=== PATIENT | male | born 1935 | race Asian ===

== ENCOUNTER → 2016-05-10 | Outpatient (CLI) | payer MEDICARE ==
[~2016-05-10] MED LIST: ALDACTONE25 MG PO; CRESTOR10 MG PO; LOPRESSOR50 MG PO; SYMBICORT 16010.2 GM INH
[2016-05-10 09:52] LABS: CREATININE 1.4 mg/dL (0.6-1.3)
== END | disposition disaster alternative care site (69) ==
LOC: GLAB 08:00 → GRAD 09:02 → GLAB 09:15 → GRAD 10:00
PROVIDERS: Surgery Vascular Surgery
DX: I71.6 Thoracoabdominal aortic aneurysm, without rupture (principal); R91.1 Solitary pulmonary nodule
CPT/HCPCS: J7040

== ENCOUNTER 2016-08-24 15:00 | Inpatient (IN) | payer MEDICARE ==
[~2016-08-24] VITALS: Ht 162.6 cm; Wt 55.1 kg
--- NOTE | ~2016-08-24 | HP ---
PATIENT'S NAME: ULIS ROBLES [facility] AGE: 81 Y [address] ROOM: [address] [address] LOCATION: [facility] ADMIT DATE: 08/24/2016 History & Physical DISCHARGE DATE: FAMILY PHYSICIAN: TOM RUBY MD ATTENDING PHYSICIAN: Chaitanya CALI DATE OF SERVICE: CHIEF COMPLAINT: Head bleed. HISTORY OF PRESENT ILLNESS: The patient is an 81-year-old gentleman with a history of hypertension, hyperlipidemia, and COPD, who presents here with a fall. According to daughter, the patient went to take a bath today this afternoon and the sound of fall was heard. The went to see him and he was found on the floor. The patient was unconscious and unresponsive. EMS was called. Initially by EMS evaluation, the patient's GCS score was 4 and was intubated. The patient received etomidate for intubation. The patient was admitted to our hospital and was found to be unresponsive with a GCS score of 3. CT head was done and it showed left intrathalamic bleed extending into the ventricles, right subdural hematoma, and also bleed seen in the lee. Dr. Chen was consulted from Neurosurgery. Discussion was had with the family, and it was decided not to have surgery due to the extensive intraparenchymal bleed. The family member wants the patient to continue to be medically treated until most family members can come and see him before he passes away if he dies. PAST MEDICAL HISTORY: Hypertension, hyperlipidemia, and COPD. SURGICAL HISTORY: AAA repair. FAMILY HISTORY: Unknown. SOCIAL HISTORY: He has a history of tobacco use. Currently, he does not smoke. Family denies him drinking. He is a retired factory assembler and lived in [place] for close to 25 years. MEDICATIONS: Currently have been reconciled. REVIEW OF SYSTEMS: PATIENT'S NAME: LUIS ROBLES [facility] AGE: 81 Y [address] ROOM: [address] [address] LOCATION: [facility] ADMIT DATE: 08/24/2016 History & Physical DISCHARGE DATE: FAMILY PHYSICIAN: TOM RUBY MD ATTENDING PHYSICIAN: Chaitanya CALI Unable to assess due to the patient's poor mentation. PHYSICAL EXAMINATION: VITAL SIGNS: Temperature 96.8, blood pressure 198/106, heart rate of 64, respiratory rate 16, oxygen saturation of 100 on 100 FiO2. GENERAL APPEARANCE: The patient is intubated and unresponsive. HEENT: Eyes: Pupils are midline and constricted. Pupils are not reactive to light. Mouth: ET tube placement present. CHEST: Clear to auscultation bilaterally. HEART: Regular rate and rhythm. No murmurs, rubs, or gallops. ABDOMEN: Soft, nondistended. Bowel sounds present. SKIN: Warm to touch. MUSCULOSKELETAL: No obvious joint effusion. COLLISION CENTER MANAGER: The patient's GCS score is 3. Pupils are not reactive to light. LABORATORY DATA: Sodium 140, potassium 4.1, bicarb 26, creatinine of 2.1, and BUN of 46. White blood cell count of 12.6, hemoglobin 12.2, and platelet 155. Troponin x1 negative. AB.38, CO2 of 41, bicarb of 24.3. ASSESSMENT AND PLAN: 1. Intraparenchymal bleed. The patient with a history of hypertension, who presents here with enlarged left acute thalamic hemorrhage with intraventricular extension as well as small bleed involving the right occipital lobe and lee with mild dilation of the ventricles. Developing hydrocephalus cannot be excluded. Also, CT shows mild periventricular and small vessel ischemic changes and small remote-appearing fountain- like nerve infarcts. The patient was seen by Dr. Chen. Currently, no surgical intervention recommended by Neurosurgery. We will admit the patient to ICU to keep his blood pressure below 160. We will start the patient on nicardipine drip to maintain systolic blood pressure below 160. Family at this moment wants the patient to be full code and wants family members to be present before they decide further care. To repeat CT head in the morning. Currently, the patient's GCS score is 3. 2. Hypertensive emergency. Systolic blood pressure in the 198. We will start the patient on nicardipine drip to quickly drop blood pressure to systolic blood pressure below 160. 3. Acute encephalopathy. Please see problem #1. 4. Acute hypoxic respiratory failure, secondary to problem #1. To keep the patient on mechanical ventilation. We will continue the patient on assist-control volume control, tidal volume 400, respiratory rate 16, PATIENT'S NAME: LUIS ROBLES [facility] AGE: 81 Y [address] ROOM: [id number] [place], [place] [address] LOCATION: GICU ADMIT DATE: 08/24/2016 History & Physical DISCHARGE DATE: FAMILY PHYSICIAN: TOM RUBY MD ATTENDING PHYSICIAN: Chaitanya CALI PEEP of 5, and we will drop his FiO2 to 50. We will check ABG in q.a.m. Greater than 30 minutes critical care time was spent on the patient. Code status was discussed with Hermila, the patient's daughter. Code status is currently full code. MD DALLAS CORLEY/savannah /[id number] D: [id number] T: [id number] HISTORY & PHYSICAL
--- NOTE | ~2016-08-24 | HP ---
PATIENT'S NAME: FACUNDO ROBLES [facility] AGE: 81 Y [address] ROOM: [address] [address] LOCATION: [facility] ADMIT DATE: 08/24/2016 History & Physical DISCHARGE DATE: FAMILY PHYSICIAN: TOM RUBY MD ATTENDING PHYSICIAN: Chaitanya CALI DATE OF SERVICE: Facundo Robles is an 81-year-old Syrian patient I see as an outpatient. He was admitted to the hospital this time through the emergency room after being found unresponsive at home on my review of the chart. He has a large intracranial bleed. His treatment and management will be per the specialist from [facility] hospitalist service and the physicians that man the intensive care unit. I will follow along socially, but not be involved in the day-to-day management or decision tree while this patient is in the hospital. TOM RUBY MD ECONOMICS INSTRUCTOR/modl /[id number] D: T: HISTORY & PHYSICAL
--- NOTE | ~2016-08-24 | DS ---
PATIENT'S NAME: LUIS ROBLES [facility] AGE: 81 Y [address] ROOM: [place] [address] [place] [facility] [place] DATE: 08/24/2016 Discharge Summary DISCHARGE DATE: 09/17/2016 FAMILY PHYSICIAN: Bari Alicia MD ATTENDING PHYSICIAN: Chaitanya Nolan PRINCIPAL DIAGNOSES: 1. . 2. Intracranial bleed. 3. Unresponsiveness. 4. Fall. 5. Klebsiella pneumonia. HOSPITAL COURSE: This was an 81-year-old male with history of hypertension, hyperlipidemia, and COPD, who presented initially with a fall and unresponsiveness. The patient, on initial CAT scan, was noted to have an extensive intraparenchymal hemorrhage relating to trauma he sustained from his fall and head injury. Prompt Neurosurgery consultation was obtained. Discussion with the family at that time was made that to not pursue an extensive surgery. However, the patient subsequently had a ventriculostomy drain placed, and was admitted to the ICU and closely followed up for several days. The patient stayed intubated and unresponsive throughout his hospitalization, but however, unfortunately, did not have any significant improvement in his neurological functioning over several days despite an extensive Multidisciplinary team based approach in managing his multiple issues during his hospitalization. Due to patient's ongoing unresponsiveness and his long-term need to be ventilated, after discussing with the family, and at that time, the patient's family still wanted to aggressively pursue treatment, it was decided for patient to be trached and pegged and had a few more days' stay in the hospital. In the subsequent days, continued discussion with the family ensued, and it was decided later on that it was appropriate to pursue comfort care measures. The patient, after all family members were present, was terminally extubated, and passed a few hours following terminal extubation in the presence of family members. TIME OF : 17:35 on 09/17/2016. Greater than 30 minutes were spent in discharge planning, facilitating, and providing end-of-life care measures per the patient and patient's family. KISHA BRITO MD PATIENT'S NAME: LUIS ROBLES [facility] AGE: 81 Y [address] ROOM: [address] [address] [place] [facility] [place] DATE: 08/24/2016 Discharge Summary DISCHARGE DATE: 09/17/2016 FAMILY PHYSICIAN: Bari Alicia MD ATTENDING PHYSICIAN: Chaitanya Nolan /[id number] d: 09/19/16 0419 t: 10/10/16 1521, DISCHARGE SUMMARY
--- NOTE | ~2016-08-24 | CON ---
PATIENT'S NAME: LUIS ROBLES [facility] AGE: 81 Y [address] ROOM: [place] [id number] LOCATION: GICU ADMIT DATE: 08/24/2016 Consultation DISCHARGE DATE: FAMILY PHYSICIAN: TOM RUBY MD ATTENDING PHYSICIAN: Chaitanya CALI DATE OF CONSULTATION: 08/25/2016 CONSULTING PHYSICIAN: Felipe Chen MD Consultation for neurointensive management. HISTORY OF PRESENT ILLNESS: This is an 81-year-old gentleman who I am postoperative day 0 after placement of an external ventricular drained and ICP monitor. Brief history obtained from the chart and family, is an 81-year-old man with history of hypertension, hyperlipidemia, and COPD who currently had a fall, found unresponsive on 08/24. EMS was called, found to have a GCS score of 4, was intubated, and taken to the emergency room in [facility] with a CT scan, which showed a large thalamic hemorrhage, intraventricular hemorrhage, some hydrocephalus, lee, and an occipital lobe hemorrhage as well. Initial discussions with Neurosurgery in the ER and family was going to just provide some comfort care and medical management and all family could arrive, and apparently sometime overnight he was found to be somewhat responsive and then became unresponsive. A CT was found showing a worsened hemorrhage and hydrocephalus. After that and some further discussion with the family and Neurosurgery decided to place an external ventricular drain to see if his decline was due to hydrocephalus. PAST MEDICAL HISTORY: Hypertension, hyperlipidemia, and COPD. SURGICAL HISTORY: AAA repair. FAMILY HISTORY: Unknown. SOCIAL HISTORY: History of tobacco use. He has quit smoking. There is no alcohol use. MEDICATIONS: Spironolactone, metoprolol, Crestor, and Symbicort. PATIENT'S NAME: ROBLESLUIS GOMEZ [facility] AGE: 81 Y [address] ROOM: [place] [address] LOCATION: GICU ADMIT DATE: 08/24/2016 Consultation DISCHARGE DATE: FAMILY PHYSICIAN: TOM RUBY MD ATTENDING PHYSICIAN: Chaitanya CALI ALLERGIES: NO KNOWN ALLERGIES. REVIEW OF SYSTEMS: Unobtainable. PHYSICAL EXAMINATION: VITAL SIGNS: His weight is about 51 kg, temperature is 97.9, heart rate is 120, respiratory rate 16, saturations 99%, 135/68 blood pressure, ICP is 8. GENERAL: The patient is intubated and sedated, sitting about 30 degrees in bed. HEAD: He has an external ventricular drain, endotracheal tube, and right IJ. All seemed to be clean, dry, and intact and functioning. CHEST: Clear to auscultation bilaterally. HEART: Tachycardic. ABDOMEN: Soft, nondistended. Positive bowel sounds. EXTREMITIES: No cyanosis, clubbing, or edema. TABLE SAW OPERATOR: The patient does not open eyes. Does not follow commands. He is not responding to painful stimuli. Pupils are unequal. Right eye about 5 and fixed and the other eye is about 3-4 and nonreactive. ASSESSMENT AND PLAN: 1. Neuro. The patient had an intercerebral hemorrhage most likely secondary hypertension. This affects the thalamic area with interventricular extension and the occipital lobe. He also had hydrocephalus, status post placement of external ventricular drain. The initial ICP in the OR after placement was not that elevated around 13 was reported. This possibly suggest that this cognitive decline is not due to relatively easy improvement with relief of the hydrocephalus. It is more likely due to expansion of the hemorrhage and his underlying injury. We will keep him sedated and comfortable overnight with hopes to wean the sedation as tolerated. He is still on a Cardene drip to maintain his blood pressure. Keep his CPPs between 60 and 90, ICPs less than 20, and try to maintain his systolic blood pressure less than 150; however, we will go higher if needed to maintain a CPP. a. Acute respiratory failure. Hypercarbic, hypoxic secondary to his hemorrhagic stroke. Maintain vent support. b. Hypertension, likely underlying cause for hemorrhage. On a Cardene drip at this time to maintain systolic blood pressures anywhere from 150. 2. Renal function. He has elevated creatinine, likely acute kidney injury. Maintain adequate hydration. Good urine output. Electrolytes were currently okay. 3. GI: No current issues. We will start tube feed in the next day or so. 4. Infectious disease. He is afebrile. PATIENT'S NAME: LUIS ROBLES [facility] AGE: 81 Y [address] ROOM: [place] [address] LOCATION: [facility] ADMIT DATE: 08/24/2016 Consultation DISCHARGE DATE: FAMILY PHYSICIAN: TOM RUYB MD ATTENDING PHYSICIAN: Chaitanya CALI 5. Heme. He has mild anemia that appears to be stable at this time. No intervention is needed. I discussed the care with the family. The point person is going to be a anette. He has left his number. Stated that he still has a very significant injury with a poor prognosis and high mortality. Family seemed to be aware. They said that he is a strong man and prideful and would not want to be in a incapacitated or disabled state. Given his recent responsive, it is prudent to proceed with current management for the next few days to see how his recovery may go. I spent approximately 48 minutes of critical care time reviewing the chart, labs, x-rays, and discussion with the family. KELLI KLEIN MD JJP/savannah /[id number] d: 08/26/16 1631 t: 09/07/16 1700, CONSULTATION REPORT
--- NOTE | ~2016-08-24 | OR ---
PATIENT'S NAME: LUIS ROBLES [facility] AGE: 81 Y [address] ROOM: [place] [address] LOCATION: GICU ADMIT DATE: 08/24/2016 OR/Procedure Report DISCHARGE DATE: FAMILY PHYSICIAN: TOM RUBY MD ATTENDING PHYSICIAN: Chaitanya CALI SURGEON: Marvin Cordova MD UPSTREAM BIOMANUFACTURING TECHNICIAN: DATE OF PROCEDURE: 08/25/2016 PREOPERATIVE DIAGNOSIS: Left basal ganglia hemorrhage with extension into the third and lateral ventricles with accompanying hydrocephalus. POSTOPERATIVE DIAGNOSIS: Left basal ganglia hemorrhage with extension into the third and lateral ventricles with accompanying hydrocephalus. OPERATION PROPOSED AND PERFORMED: Left frontal ventriculostomy and ICP monitor insertion. PREAMBLE: This is a gentleman who had a hypertensive bleed in the left basal ganglia. He was admitted yesterday and was apparently obeying commands. However, this morning, he was not doing bad, we could still get him to withdraw to painful stimuli in all extremities though it required a lot more stimulation in the upper extremities than was needed yesterday. A CT scan of the brain that was done, showed increase in the ventricular size and increase in the blood volume in the basal ganglia and increased shift of the third ventricle. It was therefore elected to go ahead and put a ventricular drain in and also monitor the ICP at the same time. DESCRIPTION OF PROCEDURE: Under general anesthesia, the patient was positioned supine. The left frontal region was shaved, prepped, and draped in the usual fashion. Next, a linear incision was carried out along the midpupillary line just anterior to the coronal suture. The pericranium was incised, twist drill hole was carried out at this site, dura was cauterized and incised. Next, a Filecubed ICP monitor with the ventricular catheter was passed through a separate stab wound through the incision and the ventricular catheter, which had the ICP sensor in it, was passed through the dural opening into the frontal horn. CSF came out under high pressure. Next, the ventricular catheter was then connected to a drainage bag. He tolerated the procedure well. The wound was closed using a single 3-0 Nurolon. MARVIN CORDOVA MD PATIENT'S NAME: LUIS ROBLES [facility] AGE: 81 Y [address] ROOM: [place] [address] LOCATION: [facility] ADMIT DATE: 08/24/2016 OR/Procedure Report DISCHARGE DATE: FAMILY PHYSICIAN: TOM RUBY MD ATTENDING PHYSICIAN: Chaitanya CALI /[id number] d: 08/26/16 0033 t: 08/31/16 1517, OPERATIVE SUMMARY
--- NOTE | ~2016-08-24 | HP ---
PATIENT'S NAME: LUIS ROBLES [facility] AGE: 81 Y [address] ROOM: [place] [address] LOCATION: [facility] ADMIT DATE: 08/24/2016 History & Physical DISCHARGE DATE: FAMILY PHYSICIAN: TOM RUBY MD ATTENDING PHYSICIAN: Chaitanya CALI DATE OF SERVICE: 08/31/2016 SURGICAL CONSULTATION CHIEF COMPLAINT: Altered mental status from intracranial bleed. HISTORY OF PRESENT ILLNESS: The patient is an 81-year-old gentleman who was initially admitted for hypertensive bleed. He has been on the neurointensive care team in the ICU being treated over the past week. He has been maintained on the ventilator and getting fed through an orogastric tube. He has had significantly altered mental status, and it is felt like he is in need of long-term airway access and enteral management. His ventilatory support has been minimal. PAST MEDICAL HISTORY: Positive for hypertension, hyperlipidemia, and COPD. PAST SURGICAL HISTORY: Include an open abdominal aortic aneurysm repair. SOCIAL HISTORY: According to the chart, the patient is a former smoker. No history of alcohol abuse. MEDICATIONS: On admission included: 1. Spironolactone. 2. Metoprolol. 3. Crestor. 4. Symbicort. His current medications have been reviewed on the computer. ALLERGIES: NO KNOWN ALLERGIES. PHYSICAL EXAMINATION: GENERAL: The patient is an elderly well-nourished gentleman. He is unresponsive. He is currently on the ventilator. PATIENT'S NAME: LUIS ROBLES [facility] AGE: 81 Y [address] ROOM: [place] [address] LOCATION: [facility] ADMIT DATE: 08/24/2016 History & Physical DISCHARGE DATE: FAMILY PHYSICIAN: TOM RUYB MD ATTENDING PHYSICIAN: Chaitanya CALI VITAL SIGNS: Temperature 98.0, blood pressure 159/75, pulse 109, respirations 24, sats are 97%. HEENT: He has a ventriculostomy tube in place. He has a right-sided neck central line placement. Orogastric, nasal, and endotracheal tube are in place. NECK: Trachea is easily palpated. There are no masses overlying it. Breathing is nonlabored. LUNGS: Clear to auscultation bilaterally. HEART: Regular rate and rhythm. ABDOMEN: Somewhat firm. It is mildly distended. He has good bowel sounds. He has a well-healed midline scar without obvious hernia. EXTREMITIES: No peripheral edema. No deformities. ASSESSMENT: An 81-year-old gentleman with altered mental status from intracranial hemorrhage. PLAN: We will plan on proceeding with a tracheostomy and EGD with possible PEG placement. I will discuss the risks and benefits further with the family. Unfortunately, the endoscopy schedule is completely full tomorrow, so we will probably have to wait until the first of next week to get this taken care of. MD FRANKLIN POWERS/savannah /[id number] D: [id number] T: [id number] HISTORY & PHYSICAL
--- NOTE | ~2016-08-24 | ENPV ---
Vascular Lower Extremities DVT Study Procedure Demographics Patient Name LUIS ROBLES Date of Study 09/04/2016 Patient Number [id number] Gender Male Date of 1935 Age 81 Visit Number [id number] Height Accession Number [id number] Weight Room Number G6201 BSA BMI Referring Goyo Bran MD Physician Goyo Putnam Physician Physician Ordering Goyo Putnam Director Internal Audit Physician [employer] Supervisor Gurpreet Ramírez BS, RT Conclusions Summary No evidence of deep vein thrombosis or superficial thrombophlebitis in the lower extremities bilaterally . Procedure Type of Study: Veins:Lower Extremities DVT Study, Venous Duplex Lower Extremity Bilateral. Indications for Study:Extended bedrest. Additional Indications:Brain bleed. Patient Status:Routine. Study Location:Inpatient Portable. Technical Quality:Adequate visualization. Velocities are measured in cm/s ; Diameters are measured in cm Right Lower Extremities DVT Study Measurements Right 2D and Doppler Measurements + + + + +------+------+ + !Location !Visualized!Compressibility!Thrombosis!Signal!Reflux!Reflux ! ! ! ! ! ! ! !(sec) ! + + + + +------+------+ + !GSV Thigh !Yes !Yes !None !Phasic!No ! ! + + + + +------+------+ + !Common !Yes !Yes !None !Phasic!No ! ! !Femoral ! ! ! ! ! ! ! + + + + +------+------+ + !Prox !Yes !Yes !None !Phasic!No ! ! !Femoral ! ! ! ! ! ! ! + + + + +------+------+ + !Mid Femoral!Yes !Yes !None !Phasic!No ! ! + + + + +------+------+ + !Dist !Yes !Yes !None !Phasic!No ! ! !Femoral ! ! ! ! ! ! ! + + + + +------+------+ + !Popliteal !Yes !Yes !None !Phasic!No ! ! + + + + +------+------+ + !Gastroc !Yes !Yes !None !Phasic!No ! ! + + + + +------+------+ + !PTV !Yes !Yes !None !Phasic!No ! ! + + + + +------+------+ + !Peroneal !Yes !Yes !None !Phasic!No ! ! + + + + +------+------+ + Left Lower Extremities DVT Study Measurements Left 2D and Doppler Measurements + + + + +------+------+ + !Location !Visualized!Compressibility!Thrombosis!Signal!Reflux!Reflux ! ! ! ! ! ! ! !(sec) ! + + + + +------+------+ + !GSV Thigh !Yes !Yes !None !Phasic!No ! ! + + + + +------+------+ + !Common !Yes !Yes !None !Phasic!No ! ! !Femoral ! ! ! ! ! ! ! + + + + +------+------+ + !Prox !Yes !Yes !None !Phasic!No ! ! !Femoral ! ! ! ! ! ! ! + + + + +------+------+ + !Mid Femoral!Yes !Yes !None !Phasic!No ! ! + + + + +------+------+ + !Dist !Yes !Yes !None !Phasic!No ! ! !Femoral ! ! ! ! ! ! ! + + + + +------+------+ + !Popliteal !Yes !Yes !None !Phasic!No ! ! + + + + +------+------+ + !Gastroc !Yes !Yes !None !Phasic!No ! ! + + + + +------+------+ + !PTV !Yes !Yes !None !Phasic!No ! ! + + + + +------+------+ + !Peroneal !Yes !Yes !None !Phasic!No ! ! + + + + +------+------+ + Signature dtt: CRYSTAL TRIANA dtd: 09/04/16 [facility] Physician Shaggy Salcedo
--- NOTE | ~2016-08-24 | CON ---
PATIENT'S NAME: LUIS ROBLES [facility] AGE: 81 Y [address] ROOM: [place] [address] LOCATION: GICU ADMIT DATE: 08/24/2016 Consultation DISCHARGE DATE: FAMILY PHYSICIAN: Bari Alicia MD ATTENDING PHYSICIAN: Chaitanya Nolan DATE OF CONSULTATION: 09/11/2016 REFERRING PHYSICIAN: Panfilo Fabian MD LOCATION: ICU, room [facility]. CHIEF COMPLAINT: Palliative care referral for goals of care conversation. HISTORY OF PRESENT ILLNESS: The patient is an 81-year-old, Romansh male with a past medical history of hypertension, hyperlipidemia, and COPD. Apparently, on the day of presentation, the patient had woken up from a nap and had gone to take a shower; when he did not return, his went looking for him and found him unresponsive in the bath tub. EMS was called and the patient was intubated. A head CT was done, which showed a left intrathalamic bleed extending into the ventricles as well as a right subdural hematoma and blood was also seen in the lee. Neurosurgery was consulted initially due to the extensive bleed. It was decided to not undergo surgery but the patient did rally, followed some commands for the family, thus on August 25 he underwent a left frontal ventriculostomy and ICP monitor placement. Postoperatively, the patient has not followed commands. His pupils are fixed and he exhibits posturing of upper extremities with stimuli. He did undergo a tracheostomy and PEG tube placement on September 05 and really has not made much in the way of improvement neurologically. He continues to have his trach in place and is at the current time requiring vent support. He did undergo a head CT in followup this morning which revealed [id number] ventriculomegaly and the ventriculostomy is currently open at all times and he is under consideration for a WAREHOUSEMAN shunt placement. Given the fact that the patient has not made much neurological recovery in the past days, Palliative Care has been consulted to assist family with goals of care conversation. PREVIOUS OPERATIONS: AAA repair. PAST MEDICAL HISTORY: COPD, hypertension, hyperlipidemia, depression. MEDICATIONS: PATIENT'S NAME: LUIS ROBLES [facility] AGE: 81 Y [address] ROOM: [place] [address] LOCATION: [facility] ADMIT DATE: 08/24/2016 Consultation DISCHARGE DATE: FAMILY PHYSICIAN: Bari Alicia MD ATTENDING PHYSICIAN: Chaitanya Nolan Please see current MAR. ALLERGIES: NO KNOWN ALLERGIES. SOCIAL HISTORY: The patient is and lives here in [place]. He is originally from [facility]. He has a history of smoking half a pack a day, he quit in 1984. No alcohol use. FAMILY HISTORY: Past medical history is unknown in his parents and siblings. REVIEW OF SYSTEMS: Unobtainable as patient is unresponsive and ventilated. PHYSICAL EXAMINATION: VITAL SIGNS: Blood pressure 113/66, heart rate 110, temperature 98.1, respirations 25, O2 saturation 98% on 40% FiO2, on the ventilator. GENERAL: Reveals an unresponsive elderly Romansh male. He is on the ventilator in the intensive care unit. He does not appear to be in any acute distress. HEENT: He has a ventriculostomy tube in place to the left frontal area. He has a tracheostomy and is hooked to the mechanical ventilator. Pupils are 3 and fixed. Sclerae nonicteric. Tongue and mucous membranes are moist and pink. Dentition is adequate. CARDIOVASCULAR: Heart tones are regular rate and rhythm. He is tachycardic. RESPIRATORY: Respirations are regular. He does over breathe the vent at times and occasionally trigger it for alarm. GASTROINTESTINAL: Abdomen is soft, nondistended. Bowel sounds are present. GENITOURINARY: Han catheter is intact with adequate amounts of yellow urine. MUSCULOSKELETAL: No significant joint deformities. Peripheral pulses are 1+ bilaterally. No clubbing or cyanosis. He does have generalized trace edema. NEUROLOGICAL: Does not open his eyes. Does not follow commands. Pupils are fixed. Does have some spontaneous very occasional movement of his left foot. He postures in upper extremities. SKIN: Warm and dry. No unusual lesions or rashes. IMPRESSION AND PLAN: 1. Altered mental status. 2. Debility. 3. Code status. The patient is a full code. I visited with the patient's daughter, Atul, who acts as spanish medical interpreter for the PATIENT'S NAME: LUIS ROBLES [facility] AGE: 81 Y [address] ROOM: [address] [place] [address] LOCATION: [facility] ADMIT DATE: 08/24/2016 Consultation DISCHARGE DATE: FAMILY PHYSICIAN: Bari Alicia MD ATTENDING PHYSICIAN: Chaitanya Nolan family. Reportedly the family declines use of MARTTI or language line due to a dialect issue and she actually declines using an spanish medical interpreter for me today. Introduced the role of palliative care for additional support and goals of care during this hospital stay. Family had lots of questions in regard to when the patient will start to wake up and how he will get to [facility] for further rehabilitation and what to expect in the coming days, weeks, and months. I answered these questions to the best of my ability. They did ask in regard to the CT scan from earlier today and I did defer this to Neurosurgery who will be coming later today to visit with the family in regard to the findings. During our conversation, family did talk quite a bit about how the patient wants to in [place] or if anything at least have his remains taken back there. I provided some education and support in regard to this. We will continue to follow and assist with further education and support as needed. We will see what the next couple of days bring as far as whether the patient will need WAREHOUSEMAN shunt placement. We will await the family's conversation with Neurosurgery before moving forward with further goals of care conversation at this time. A total of 60 minutes was spent with this family, greater than 50% of this time was spent providing education, counseling, emotional support. Thank you for allowing me to assist this patient and family. KYRA READ NP FOR MD PATRICK ALVES/modl /[id number] CC: Panfilo Fabian MD d: 09/14/16 1604 t: 10/04/16 0916, CONSULTATION REPORT
--- NOTE | ~2016-08-24 | ENPV ---
Vascular Upper Extremities Veins Procedure Demographics Patient Name LUIS ROBLES Date of Study 09/13/2016 Patient Number [id number] Gender Male Date of 1935 Age 81 Visit Number [id number] Height Accession Number [id number] Weight Room Number G6201 BSA BMI Referring Ruy Bran MD Physician MD Physician Maral Tavares Physician Ordering Physician Ruy Pearce MD [employer] Band Director Patient Relations Specialist Shawnee Staples RVT Conclusions Summary Evidence of DVT in right brachial vein and thrombus in right basilic vein distal to axillary vein. No evidence of DVT distal to brachial veins. Procedure Type of Study: Veins:Upper Extremities Veins, Upper Extremity Right. Additional Indications:PICC line in right arm rule out DVT Appropriate Use Criteria:9 Patient Status:Routine. Study Location:Inpatient Portable. Technical Quality:Limited visualization due to patient immobility. Velocities are measured in cm/s ; Diameters are measured in cm Right UE Vein Measurements 2D and Doppler Measurements + + + + +--------+ + !Location !Visualized !Compressibility !Thrombosis !Signal !Reflux ! + + + + +--------+ + !IJV !Yes !Yes !None ! ! ! + + + + +--------+ + !SCV !Yes !Yes !None ! ! ! + + + + +--------+ + !Axillary !Yes !Yes !None ! ! ! + + + + +--------+ + !Brachial !Yes !Partial !Sub-acute ! ! ! + + + + +--------+ + !Radial !Yes !Yes !None ! ! ! + + + + +--------+ + !Ulnar !Yes !Yes !None ! ! ! + + + + +--------+ + !Basilic !Yes !Partial !Sub-acute ! ! ! + + + + +--------+ + !Cephalic !Yes !Yes !None ! ! ! + + + + +--------+ + Signature dtt: CRYSTAL TRIANA: 09/13/16 0856 Physician Self Edit
--- NOTE | ~2016-08-24 | CON ---
PATIENT'S NAME: [facility] AGE: 81 Y [address] ROOM: [place] [address] LOCATION: [facility] ADMIT DATE: 08/24/2016 Consultation DISCHARGE DATE: FAMILY PHYSICIAN: TOM RUBY MD ATTENDING PHYSICIAN: Chaitanya CALI HISTORY OF PRESENT ILLNESS: I saw this 81-year-old male in the emergency room. The history that was obtained was that he was having a nap and then got up from the nap, and he went to have a shower, and when his did not see him come back after a while, she checked him up and found him in the bathtub unresponsive. She called 911, and when the emergency crew arrived, he was still unresponsive, so he was consequently intubated and brought to the emergency room. PAST MEDICAL HISTORY: Previous history of hypertension and the daughter felt also that he has a past history of TB. ALLERGIES: FAR ALLERGIES CONCERNED, I COULD NOT GET ANY DEFINITE HISTORY OF THAT FROM ANY OF THE RELATIVES WHO WERE IN THE EMERGENCY ROOM AT THAT TIME WELL THE MEDICATION LIST. REVIEW OF SYSTEMS: Could not be carried out primarily because of his neurological status. PHYSICAL EXAMINATION: In the emergency room, he was intubated. He has a cervical collar on. Pupils: The right pupil was 1 mm, the left was 3 mm. They were both fixed to light. He did not respond to any painful stimuli in all the extremities. He was not triggering the ventilator. As far as the chest, heart, and abdominal examinations, see Dr. Garrison's notes. IMAGING DATA: He had a CT scan of the brain done. The CT scan of the brain showed a large intracerebral hematoma in the left basal ganglia area in the thalamus. It is extending to third and lateral ventricles. IMPRESSION: 1. Large hypertensive hemorrhage with extension into the ventricles. 2. Mild early hydrocephalus. PLAN: I discussed the situation at length with the relatives who were around. Primarily, the fact that his pupils were fixed to light and secondly the fact also that there was no response to any painful stimuli and he was not making PATIENT'S NAME: [facility] AGE: 81 Y [address] ROOM: [place] [address] LOCATION: [facility] ADMIT DATE: 08/24/2016 Consultation DISCHARGE DATE: FAMILY PHYSICIAN: TOM RUBY MD ATTENDING PHYSICIAN: Chaitanya CALI attempts to trigger the ventilator and also the fact that he is 81 years' old, my feeling was that the prognosis was quite poor. I did explain this to the members of the family who were around. If the prognosis was a little bit better, one could go ahead and put in a ventricular catheter and drained the CSF. After the discussion, the members of the family who were present said that they would like to discuss this with the other members of the family and will let us know what their decision is. In the meantime, they wanted him to be kept ventilated primarily because today happens to be his birthday, and they were already planning to have a birthday green party for him. The family's plan would be to gather in his room in the ICU. I did emphasize to them that he would not be able to hear whatever they were doing and was really completely out of it primarily because of the hemorrhage. Consequent to this discussion, the impression we had was that we probably would not need to do anything. Consequently, we decided to have him discuss this with Dr. Garrison who got in touch with the hospitalist with the aim of at least keeping him in the ICU until the rest of the family arrives and also eventually transfer into the hospice unit. MD AUGUSTO VILLANUEVA/[place] /[id number] d: 08/25/16 0118 t: 08/31/16 1514, CONSULTATION REPORT
--- NOTE | ~2016-08-24 | ER ---
PATIENT'S NAME: LUIS ROBLES [facility] AGE: 81 Y [address] ROOM: [address], [place] [address] LOCATION: [facility] ADMIT DATE: 08/24/2016 ER/Outpatient Report DISCHARGE DATE: FAMILY PHYSICIAN: TOM RUBY MD ATTENDING PHYSICIAN: Chaitanya NOLAN CHIEF COMPLAINT: Unresponsive. HISTORY OF PRESENT ILLNESS: The patient arrives by EMS intubated after an unresponsive episode. By report, the patient was celebrating his birthday with his family today. He had been taking a nap with his and got up to use the restroom. The patient was found naked in the shower with vomitus and unresponsive. He reportedly groaned to stimulation and then was intubated out of concerns for decreased GCS and vomiting for airway protection. He had been hypertensive but otherwise no outward signs of trauma per EMS. He was intubated per their records with RSI. The patient has a history of high lipids, high blood pressure, and COPD, and possibly to tuberculosis. Past surgical history includes an AAA repair in 2011. He is a former smoker. Past medical history, social history, medications, and allergies are as documented on the record and have been reviewed by me. REVIEW OF SYSTEMS: Unable to be obtained. All information available is from collateral sources including EMS and family. PHYSICAL EXAMINATION: VITAL SIGNS: Blood pressure initially 125/78, pulse is 66, respiratory rate is 12 bagged, temp is 96.8, SpO2 is 100% on 15 L via endotracheal tube. GENERAL: Small aged male, recumbent on exam the table, intubated, in no obvious pain or distress. NEUROLOGIC: The patient has a GCS of 3T. No response to pain, even at 90 minutes after arrival. Pupils are 2 mm and nonreactive bilateral. HEENT: Normocephalic, atraumatic. No external signs of trauma. Nasal mucosa and oropharynx are grossly clear other than some scant vomitus in the airway. Endotracheal tube is in place. NECK: The neck has C-collar but is supple. Trachea is midline. CHEST: Bilateral breath sounds are present. HEART: Regular rate and rhythm with no obvious murmurs. ABDOMEN: Soft, nontender, and nondistended. No rebound, guarding, or appreciable masses. Prior midline incision scar is intact. EXTREMITIES: Warm, dry, well perfused. The skin appears to be grossly intact. PATIENT'S NAME: LUIS ROBLES [facility] AGE: 81 Y [address] ROOM: [address], [place] [address] LOCATION: [facility] ADMIT DATE: 08/24/2016 ER/Outpatient Report DISCHARGE DATE: FAMILY PHYSICIAN: TOM RUBY MD ATTENDING PHYSICIAN: Chaitanya NOLAN LABORATORY DATA AND X-RAYS: Head CT with large left thalamic intraparenchymal hemorrhage with intraventricular extension and small hemorrhage in the lee and right occipital lobe and possible subdural. Labs: EKG reveals sinus rhythm, rate of 60 with normal intervals, other than a prolonged MD at 207. No signs of acute ischemia or dysrhythmia. D-dimer is elevated. CMS without electrolyte abnormalities. Glucose is 130, creatinine is 2.1, GFR is 30. CK-MB and troponin are not elevated. Free T4 is 1.3. Ammonia is 27. TSH is 0.541. Lactate is 1.4. Blood gas; pH of 7.38, pCO2 is 41, pO2 is 427 on 15 L. CBC: White count 12.6, hemoglobin 12.2, platelets 155, INR is 0.92, PTT is 26, PT is 9.7. Chest x-ray, endotracheal tube in appropriate position. No obvious other abnormalities. IMPRESSION: 1. Intraparenchymal hemorrhage with intraventricular extension and possible contrecoup lesion. 2. Intubation. 3. Uncontrolled hypertension. 4. Elevated D-dimer. 5. Azotemia, unclear baseline renal function. EMERGENCY DEPARTMENT COURSE: The patient was seen and evaluated. Airway was confirmed to be secured. He was taken for head CT, which diagnosed intracranial hemorrhage. The remainder of the spine was imaged as the exact circumstances were unclear. Broad differential was entertained initially. However, pending with the results of the head CT, it was clear the etiology was current presentation. The patient was deemed to have an extremely poor neurologic prognosis outcome. Dr. Chen, neurosurgeon, was consulted. We reviewed the case together with the family. They have elected under our guidance to not pursue any further aggressive measures as I believe that the patient will have an unlikely chance of surviving let alone recovering. The patient was otherwise stable but was hypertensive. Nicardipine was started per Dr. Nolan, hospitalist, who will admit the patient to the ICU to try to facilitate comfort measures while allowing family to complete the grieving process, so that we can allow the patient to pass under the course of nature. CRITICAL CARE: 42 minutes of critical care time was spent on this patient and the patient's evaluation, discussion with consultants, review of imaging, interpretation of EKG, ordering labs and chest x-ray, interpretation of same. Critical care is PATIENT'S NAME: LUIS ROBLES [facility] AGE: 81 Y [address] ROOM: [address], [place] [address] LOCATION: [facility] ADMIT DATE: 08/24/2016 ER/Outpatient Report DISCHARGE DATE: FAMILY PHYSICIAN: TOM RUBY MD ATTENDING PHYSICIAN: Chaitanya NOLAN warranted for the acute encephalopathy and life-threatening condition of intracranial hemorrhage with marked change in mental status. The patient was taken to the ICU under the care of Dr. Nolan for further evaluation and treatment with presumed clinical course resulting in ultimately. [facility] was contacted by the RN prior to the patient departing the ER. MD CIRO LEYVA/[place]annah /[id number] d: 08/25/16 0028 t: 09/04/16 0709, OUTPATIENT REPORT
--- NOTE | ~2016-08-24 | ENPV ---
Vascular Lower Extremities DVT Study Procedure Demographics Patient Name LUIS ROBLES Date of Study 08/28/2016 Patient Number [id number] Gender Male Date of 1935 Age 81 Visit Number [id number] Height Accession Number [id number] Weight Room Number G6201 BSA BMI Referring Erin Blanco Physician Physician Physician Ordering Physician Erin Jenkins Drainage Inspector Direct Marketing Manager Gurpreet Ramírez BS, RT Conclusions Summary TECHNIQUE: The veins of the lower extremities on the right and the left were evaluated from the groin to the ankle using drummond scale, compression, and augmentation. Venous hemodynamics were evaluated with color flow and spectral Doppler. FINDINGS: The deep veins of the legs bilaterally show normal color flow and compressibility without thrombosis. IMPRESSION: NEGATIVE BILATERAL LOWER EXTREMITY VENOUS DOPPLER. Procedure Type of Study: Veins:Lower Extremities DVT Study, Venous Duplex Lower Extremity Bilateral. Indications for Study:Stroke. Additional Indications:Immobility Patient Status:Routine. Study Location:Inpatient Portable. Technical Quality:Adequate visualization. Velocities are measured in cm/s ; Diameters are measured in cm Right Lower Extremities DVT Study Measurements Right 2D and Doppler Measurements + + + + +------+------+ + !Location !Visualized!Compressibility!Thrombosis!Signal!Reflux!Reflux ! ! ! ! ! ! ! !(sec) ! + + + + +------+------+ + !GSV Thigh !Yes !Yes !None !Phasic!No ! ! + + + + +------+------+ + !Common !Yes !Yes !None !Phasic!No ! ! !Femoral ! ! ! ! ! ! ! + + + + +------+------+ + !Prox !Yes !Yes !None !Phasic!No ! ! !Femoral ! ! ! ! ! ! ! + + + + +------+------+ + !Mid Femoral!Yes !Yes !None !Phasic!No ! ! + + + + +------+------+ + !Dist !Yes !Yes !None !Phasic!No ! ! !Femoral ! ! ! ! ! ! ! + + + + +------+------+ + !Popliteal !Yes !Yes !None !Phasic!No ! ! + + + + +------+------+ + !Gastroc !Yes !Yes !None !Phasic!No ! ! + + + + +------+------+ + !PTV !Yes !Yes !None !Phasic!No ! ! + + + + +------+------+ + !Peroneal !Yes !Yes !None !Phasic!No ! ! + + + + +------+------+ + Left Lower Extremities DVT Study Measurements Left 2D and Doppler Measurements + + + + +------+------+ + !Location !Visualized!Compressibility!Thrombosis!Signal!Reflux!Reflux ! ! ! ! ! ! ! !(sec) ! + + + + +------+------+ + !GSV Thigh !Yes !Yes !None !Phasic!No ! ! + + + + +------+------+ + !Common !Yes !Yes !None !Phasic!No ! ! !Femoral ! ! ! ! ! ! ! + + + + +------+------+ + !Prox !Yes !Yes !None !Phasic!No ! ! !Femoral ! ! ! ! ! ! ! + + + + +------+------+ + !Mid Femoral!Yes !Yes !None !Phasic!No ! ! + + + + +------+------+ + !Dist !Yes !Yes !None !Phasic!No ! ! !Femoral ! ! ! ! ! ! ! + + + + +------+------+ + !Popliteal !Yes !Yes !None !Phasic!No ! ! + + + + +------+------+ + !Gastroc !Yes !Yes !None !Phasic!No ! ! + + + + +------+------+ + !PTV !Yes !Yes !None !Phasic!No ! ! + + + + +------+------+ + !Peroneal !Yes !Yes !None !Phasic!No ! ! + + + + +------+------+ + Signature dtt: Jeremias Smith dtd: 08/28/16 0851 Physician Self Denisse
--- NOTE | ~2016-08-24 | OR ---
PATIENT'S NAME: LUIS ROBLES [facility] AGE: 81 Y [address] ROOM: [place] [address] LOCATION: [facility] ADMIT DATE: 08/24/2016 OR/Procedure Report DISCHARGE DATE: FAMILY PHYSICIAN: TOM RUBY MD ATTENDING PHYSICIAN: Chaitanya CALI SURGEON: Won Chan MD TEXTILE MACHINE OPERATOR: DATE OF PROCEDURE: 09/05/2016 PREOPERATIVE DIAGNOSIS: Altered mental status from intracerebral bleed. POSTOPERATIVE DIAGNOSES: 1. Altered mental status from intracerebral bleed. 2. Moderate pre-pyloric gastritis. PROCEDURES PERFORMED: 1. Percutaneous tracheostomy. 2. EGD with PEG placement. ANESTHESIA: General with local. ESTIMATED BLOOD LOSS: Less than 10 mL. SPECIMEN: None. REASON FOR PROCEDURE: The patient is an 81-year-old gentleman, who has recently been hospitalized for a hypertensive bleed. He has had significantly altered mental status. It was decided to go ahead with long-term airway support and enteral access. This was discussed with the family, who agreed. PROCEDURE IN DETAIL: The patient was left in the ICU with the head elevated and the neck extended. The neck was prepped with ChloraPrep and sterilely draped. Lidocaine was infiltrated into the area. A 2-cm vertical incision was then made above the trachea just above the sternal notch. Blunt dissection was carried down to the sternal muscles. The bronchoscope was then advanced to the end of the endotracheal tube. The bronchoscope was left there, and the endotracheal tube was gradually withdrawn, so that it was above our level of incision. The needle was then advanced through the trachea. The guidewire was advanced through the needle and visualized extending down the trachea to the kaylen. The tract was then sequentially dilated until an 8 percutaneous Shiley could be placed without difficulty. The bronchoscope was then advanced through the tracheostomy tube to confirm good placement. There were quite a few bloody secretions, but no signs of active bleeding. These were suctioned out. A tracheostomy strap was used to hold this in place. Next, the gastroscope was advanced through a bite- PATIENT'S NAME: LUIS ROBLES [facility] AGE: 81 Y [address] ROOM: [place] [address] LOCATION: [facility] ADMIT DATE: 08/24/2016 OR/Procedure Report DISCHARGE DATE: FAMILY PHYSICIAN: TOM RUBY MD ATTENDING PHYSICIAN: Chaitanya CALI, and the esophagus was intubated under direct visualization. The scope was advanced down into the stomach. Some moderate pre-pyloric gastritis was noted. The duodenum was unremarkable. Pressure on the abdominal wall was used to localize an area for PEG placement. This was then prepped with ChloraPrep and draped. Lidocaine was infiltrated into the area. A 1-cm incision was made. A needle was then advanced through the abdominal wall and visualized entering the gastric mucosa. A guidewire was advanced through the needle. The guidewire was grasped with a snare and carefully withdrawn through the esophagus and oropharynx. A PEG tube was advanced over the guidewire and pulled into position. A bolster was used to hold this in place. POST-PROCEDURE PLAN: We will leave the PEG tube clamp for 8 hours, then gradually resume tube feeds. MD Alice POWERSTM/modl /[id number] d: 09/05/16 2215 t: 09/13/16 1350, OPERATIVE SUMMARY
[2016-08-24 15:34] LABS: BICARBONATE 24.3 mmol/L (18.0-23.0); PCO2 41 mmHg (35-45); PO2 427 mmHg (80-90)
[2016-08-24 15:35] LABS: BASOPHIL # 0.1 K/uL (0.0-0.2); BASOPHIL % 0.6 %; EOSINOPHIL % 15.6 %; HEMATOCRIT 36.3 % (33.0-50.0); HEMOGLOBIN 12.2 g/dL (11.0-16.0); IMMATURE GRANULOCYTE # 0.1 K/uL (0.0-0.3); IMMATURE GRANULOCYTE % 0.5 %; LYMPHOCYTE # 1.1 K/uL (0.8-4.0); LYMPHOCYTE % 8.8 %; MCH 31.4 pg (27.0-34.0); MCHC 33.6 gm/dL (32.0-36.5); MCV 93.6 fl (83.0-98.0); MONOCYTE # 0.8 K/uL (0.0-1.0); MPV 9.1 fl (9.4-12.4); NEUTROPHIL # (ANC) 8.6 K/uL (1.4-9.0); NEUTROPHIL % 68.5 %; NRBC % 0 /100WBC (0-0.00); PLATELET COUNT 155 K/uL (150-450); RBC 3.88 M/uL (3.50-5.50); RDW-CV 13.3 % (11.9-14.6); WBC 12.6 K/uL (4.0-11.0)
[2016-08-24 15:52] LABS: INR - (THERAPEUTIC) 0.92 (0.92-1.07); PROTIME 9.7 SECONDS (9.8-11.4); PTT 26 SECONDS (25-32)
[2016-08-24 15:56] LABS: ALBUMIN 3.5 gm/dL (3.5-5.0); ALK PHOS 66 IU/L (33-138); ALT 17 IU/L (12-78); ANION GAP 10.1 (10.0-19.0); AST 21 IU/L (10-40); BLOOD UREA NITROGEN 46 mg/dL (6-24); CALCIUM 8.2 mg/dL (8.5-10.5); CHLORIDE 108 mMol/L (96-110); CO2 26 mMol/L (22-32); CREATININE 2.1 mg/dL (0.6-1.3); ESTIMATED GFR (MDRD EQUATION) 30; POTASSIUM 4.1 mMol/L (3.7-5.1); SODIUM 140 mMol/L (135-145); TOTAL BILIRUBIN 0.4 mg/dL (0.0-1.5); TOTAL PROTEIN 7.3 g/dL (6.0-8.4)
--- NOTE | 2016-08-25 04:32 | NUR ---
FiO2 weaned to 30%, EtCO2 26-32. BrSs mostly clear and dim. Suctioned small amount of thick, yellow/cream colored secretions from ETT. ETT secured via ETAD at 26cm at the lip. Trip to CT this AM without complication. Continue per plan of care.
[2016-08-25 04:39] LABS: BICARBONATE 22.6 mmol/L (18.0-23.0); PCO2 37 mmHg (35-45); PO2 86 mmHg (80-90)
[2016-08-25 05:09] LABS: BASOPHIL # 0.1 K/uL (0.0-0.2); BASOPHIL % 0.4 %; EOSINOPHIL # 0.4 K/uL (0.0-0.5); EOSINOPHIL % 2.9 %; IMMATURE GRANULOCYTE % 0.2 %; LYMPHOCYTE # 1.1 K/uL (0.8-4.0); LYMPHOCYTE % 8.6 %; MCH 30.8 pg (27.0-34.0); MCHC 33.3 gm/dL (32.0-36.5); MCV 92.3 fl (83.0-98.0); MONOCYTE # 1.1 K/uL (0.0-1.0); MONOCYTE % 9.2 %; MPV 9.2 fl (9.4-12.4); NEUTROPHIL # (ANC) 9.5 K/uL (1.4-9.0); NEUTROPHIL % 78.7 %; NRBC % 0 /100WBC (0-0.00); PLATELET COUNT 154 K/uL (150-450); RDW-CV 13.2 % (11.9-14.6); WBC 12.1 K/uL (4.0-11.0)
[2016-08-25 05:28] LABS: ALBUMIN 3.3 gm/dL (3.5-5.0); TOTAL PROTEIN 6.9 g/dL (6.0-8.4)
[2016-08-25 05:29] LABS: TOTAL BILIRUBIN 0.6 mg/dL (0.0-1.5)
--- NOTE | 2016-08-25 05:45 | NUR ---
patient occaqsionally will follow simple commands with lt hand when asked to squeeze or wiggle his legs,pupils are unequal,rt is 5mm and fixed,lt 4mm and sluggish react to light,clear upper lungs sound diminished on the bases,thick creamy secrtions when suctioned,a/c vent mode fio2=30%,w1qhc=33%. FOLLOW UP:CONTINUE TO MONITOR PATIENT'S HEMODYNAMIC AND RESPIRATORY STATUS CLOSELY,DR CORDOVA WILL UPDATE FAMILY ON THE MORNING C.T RESULTS
[2016-08-25] MEDS ORDERED: LOPRESSOR50 MG PO (10:04)
[2016-08-25] MEDS ORDERED: CRESTOR10 MG PO (10:04)
[2016-08-25] MEDS ORDERED: ALDACTONE25 MG PO (10:04)
[2016-08-25] MEDS ORDERED: SYMBICORT 16010.2 GM INH (10:05)
--- NOTE | 2016-08-25 10:55 | NUR ---
A - INTERDISCIPLINARY REFERRAL VENT, SEDATED W/ PROPOFOL AT 6.7ML/NN=162 LIPIDS KCAL. FAMILY WANTS AGGRESSIVE TREATMENT NOW. ICP/VENTRIC PLACEMENT TODAY. HT: 162.56 CM, WT: 113#, BMI: 19.3, IBW: 59 KG, %IBW: 87% LABS: GLU 157, BUN 36, CREA 2.0, ALB 3.3 MEDS: LASIX DIET: NO DIET ORDER AT THIS TIME. EST NEEDS: [id number] KCAL (25-30 KCAL/KG), 59-71 GRAMS PROTEIN (1-1.2 GRAMS/KG), FLUID NEEDS: 1ML/KCAL OR PER MD D - INADEQUATE ORAL INTAKE RELATED TO INABILITY TO FEED ORALLY EVIDENCED BY VENT/SEDATION I - WHEN READY TO START ENTERAL NUTRITION, RECOMMEND PROMOTE AT 55ML/HR WITH WATER FLUSHES 60ML EVERY 4 HR IF NO IV FLUID TO PROVIDE 1320 KCAL (1497 KCAL W/ PROPOFOL), 83 GRAMS PROTEIN, 1107ML FREE WATER. M/E - GOAL: TO INITIAL ENTERAL NUTRITION IF AGGRESSIVE TREATMENT DESIRED AND ABLE TO TOLERATE IT IN 3-4 DAYS.
[2016-08-25 13:33] LABS: BICARBONATE 26.6 mmol/L (18.0-23.0)
[2016-08-25 13:34] LABS: BASOPHIL % 0.3 %; EOSINOPHIL # 0.1 K/uL (0.0-0.5); EOSINOPHIL % 0.4 %; HEMATOCRIT 33.1 % (33.0-50.0); HEMOGLOBIN 11.5 g/dL (11.0-16.0); IMMATURE GRANULOCYTE % 0.3 %; LYMPHOCYTE # 0.7 K/uL (0.8-4.0); LYMPHOCYTE % 5.2 %; MCH 32.2 pg (27.0-34.0); MCHC 34.7 gm/dL (32.0-36.5); MCV 92.7 fl (83.0-98.0); MONOCYTE # 0.9 K/uL (0.0-1.0); MONOCYTE % 6.6 %; MPV 9.3 fl (9.4-12.4); NEUTROPHIL # (ANC) 11.7 K/uL (1.4-9.0); NEUTROPHIL % 87.2 %; NRBC % 0 /100WBC (0-0.00); PLATELET COUNT 148 K/uL (150-450); RBC 3.57 M/uL (3.50-5.50); RDW-CV 13.2 % (11.9-14.6); WBC 13.4 K/uL (4.0-11.0)
[2016-08-25 13:38] LABS: PCO2 45 mmHg (35-45); PO2 105 mmHg (80-90)
[2016-08-25 13:48] LABS: ANION GAP 10.9 (10.0-19.0); CALCIUM 7.4 mg/dL (8.5-10.5); CREATININE 1.8 mg/dL (0.6-1.3); PHOSPHORUS 3.6 mg/dL (2.5-4.9); POTASSIUM 3.9 mMol/L (3.7-5.1)
--- NOTE | 2016-08-25 17:28 | NUR ---
Significant Event: Pt less responsive, not following commands this AM. Down for an ICP/Ventric placement at 1015. Remains sedated on propofol. Ventric open at all times. ICP 4-10. CPPs in 80s. Withdraws from pain x 4. R pupil fixed, left pupil 3 and sluggish. Hypertenisive. Cardene gtt to keep SBP <150. Good urine output. Tylenol x 2 for temp of 101. OG to LIS. Follow up: continue plan.
[2016-08-26 04:33] LABS: BICARBONATE 24.7 mmol/L (18.0-23.0); LACTATE 0.9 mEq/L (0.50-1.60); PCO2 39 mmHg (35-45); PO2 89 mmHg (80-90)
[2016-08-26 04:40] LABS: BASOPHIL % 0.4 %; EOSINOPHIL # 0.1 K/uL (0.0-0.5); EOSINOPHIL % 0.6 %; HEMATOCRIT 32.3 % (33.0-50.0); HEMOGLOBIN 10.9 g/dL (11.0-16.0); IMMATURE GRANULOCYTE # 0.1 K/uL (0.0-0.3); IMMATURE GRANULOCYTE % 0.5 %; LYMPHOCYTE # 0.9 K/uL (0.8-4.0); MCH 31.5 pg (27.0-34.0); MCHC 33.7 gm/dL (32.0-36.5); MCV 93.4 fl (83.0-98.0); MONOCYTE # 0.9 K/uL (0.0-1.0); MONOCYTE % 7.7 %; NEUTROPHIL # (ANC) 9.4 K/uL (1.4-9.0); NEUTROPHIL % 82.8 %; NRBC % 0 /100WBC (0-0.00); PLATELET COUNT 160 K/uL (150-450); RBC 3.46 M/uL (3.50-5.50); RDW-CV 13.4 % (11.9-14.6); WBC 11.4 K/uL (4.0-11.0)
[2016-08-26 04:46] LABS: INR - (THERAPEUTIC) 0.99 (0.92-1.07); PROTIME 10.4 SECONDS (9.8-11.4)
--- NOTE | 2016-08-26 04:49 | NUR ---
PT. ON VENT AT 40% JEFRY TO 30% FIO2 WITH SATS 95-100%. ETCO2 30-33. BREATH SOUNDS HAVE BEEN CLEAR AND DIMINISHED T/O MORE SO IN THE BASES. SUCTIONED A SCANT AMOUNT OF CREAM SECRETIONS. WILL CONTINUE TO FOLLOW UNTIL FURTHER NOTICE.
[2016-08-26 04:52] LABS: ALBUMIN 2.8 gm/dL (3.5-5.0); ANION GAP 11.1 (10.0-19.0); CREATININE 1.5 mg/dL (0.6-1.3); POTASSIUM 4.1 mMol/L (3.7-5.1); TOTAL BILIRUBIN 0.5 mg/dL (0.0-1.5); TOTAL PROTEIN 6.4 g/dL (6.0-8.4)
[2016-08-26 04:54] LABS: CALCIUM 7.3 mg/dL (8.5-10.5)
--- NOTE | 2016-08-26 05:24 | NUR ---
Significant Event: PT CONTINUES TO BE INTUBATED AND SEDATED WITH PROPOFOL. WITHDRAWS X4, NO SPONTANEOUS MOVMENT NOTED THIS SHIFT. VENTRIC OUTPUT THIS SHIFT 143 MLS, COLOR CHANGING FROM BLOOD-TINGED TO EID COLORED AND AMOUNT OUT PER HOUR INCREASING FROM 10 TO >[address] PALACIOS UPDATED WHEN COLOR CHANGE AND DRAINAGE SPEED CHANGED (HE WAS AT BEDSIDE WITH FAMILY.) METOPROLOL IVP GIVEN X2 DOSES BY THIS RN. ORDER CHANGED WHEN DR. PALACIOS WAS AT BEDSIDE; SEE CHART. TMAX 101.0 PER ESOPHAGEAL PROBE; APAP ADMINISTERED X1 DOSE. UOP REMAINS ADEQATE ALTHOUGH SLOWING TO APPROX 30 ML/HR AROUND 0100. CARDENE GTT OFF AT THIS TIME, BP LABILE. HR REMAINS 100S-120S. OGT REMAINS IN PLACE, BILE DRAINAGE FOR THIS RN. NO BM THIS SHIFT. Follow up: CONTINUE WITH NEUROINTENSIVE STATUS. VERONIKA ZHENG RN
[2016-08-26 15:52] LABS: BICARBONATE 23.7 mmol/L (18.0-23.0); LACTATE 1.3 mEq/L (0.50-1.60)
[2016-08-26 15:53] LABS: PCO2 47 mmHg (35-45); PO2 158 mmHg (80-90)
[2016-08-26 16:07] LABS: ALBUMIN 2.7 gm/dL (3.5-5.0); ANION GAP 11.2 (10.0-19.0); CALCIUM 7.8 mg/dL (8.5-10.5); CREATININE 1.4 mg/dL (0.6-1.3); PHOSPHORUS 2.6 mg/dL (2.5-4.9); POTASSIUM 4.2 mMol/L (3.7-5.1)
--- NOTE | 2016-08-26 17:01 | NUR ---
CONSULT FOR TF RECS NOTED. OSMOLITE 1.5 ORDERED AT 40 ML/HR, CURRENTY RUNNING AT 20 ML/HR W/O DIFFICULTY. GOAL RATE OF 45 ML/HR = 1620 KCALS, 68 GM PROTEIN WILL MEET ESTIMATED NEEDS. GOAL RATE CALLED TO RN. WILL F/U IN 2 DAYS.
--- NOTE | 2016-08-26 18:59 | NUR ---
Significant Event: Propofol off this AM. Pupils remain unchanged. R) 4fixed, L) 3 very sluggish. Withdraws in the lower extremities, inconsistantly withdraws in the upper extremitites. ICP 3-12. Continues to have bloody drainage, 10ml/hr. Overbreaths ventilator. Late afternoon grimaces and moves head with oral cares. BP and HR elevated late afternoon. Order for PRN hydralizine and Fentanyl gtt at 50mcg/hr. TF started, goal is 45ml/hr. Currently running at 20ml/hr. BS hypoactive. CT of head this afternoon. Follow up: continue plan of care
[2016-08-27 04:16] LABS: BICARBONATE 23.6 mmol/L (18.0-23.0); PCO2 39 mmHg (35-45); PO2 129 mmHg (80-90)
[2016-08-27 04:21] LABS: BASOPHIL % 0.4 %; EOSINOPHIL # 0.1 K/uL (0.0-0.5); HEMATOCRIT 30.6 % (33.0-50.0); HEMOGLOBIN 10.3 g/dL (11.0-16.0); IMMATURE GRANULOCYTE % 0.4 %; LYMPHOCYTE # 0.6 K/uL (0.8-4.0); LYMPHOCYTE % 7.8 %; MCH 31.7 pg (27.0-34.0); MCHC 33.7 gm/dL (32.0-36.5); MCV 94.2 fl (83.0-98.0); MONOCYTE # 0.9 K/uL (0.0-1.0); MONOCYTE % 11.8 %; NEUTROPHIL # (ANC) 6.3 K/uL (1.4-9.0); NEUTROPHIL % 78.6 %; NRBC % 0 /100WBC (0-0.00); RBC 3.25 M/uL (3.50-5.50); RDW-CV 13.5 % (11.9-14.6)
[2016-08-27 04:28] LABS: INR - (THERAPEUTIC) 0.92 (0.92-1.07); PROTIME 9.6 SECONDS (9.8-11.4)
[2016-08-27 04:35] LABS: ALBUMIN 2.4 gm/dL (3.5-5.0); CALCIUM 7.5 mg/dL (8.5-10.5); CREATININE 1.2 mg/dL (0.6-1.3); PLATELET COUNT 193 K/uL (150-450); TOTAL BILIRUBIN 0.2 mg/dL (0.0-1.5)
--- NOTE | 2016-08-27 05:03 | NUR ---
PT. ON VENT AT 40% WITH SATS 95-98%. ETCO2 30-34. BREATH SOUNDS ARE CLEAR AND DIMINISHED T/O MORE SO IN THE BASES. SUCTIONED A SCANT AMOUNT OF CREAM SECRETIONS. WILL CONTINUE TO FOLLOW UNTIL FURTHER NOTICE.
--- NOTE | 2016-08-27 06:46 | NUR ---
PT REMAINS INTUBATED, NO SEDATION. FENTANYL GTT STARTED AT 50 MCG/HR JUST PRIOR TO THIS RN ASSUMING CARES. PUPILS REMAIN UNCHANGED, W/D X4 WITH RUE REQUIRING MUCH MORE STIMULI AND RESPONDING LESS. SHIFT PROGRESSED, PT WOULD LIFT LUE OFF OF BED WHEN NOXIOUS STIMULI APPLIED. DOES NOT OPEN EYES. SPONTANEOUS COUGH INCREASING IN FREQUENCY SHIFT PROGRESSED. VENTRIC OUTPUT 121 ML BLOODY CSF THIS SHIFT. HR 90S-130S; METOPROLOL 5 MG IVP GIVEN X1; FIRST DOSE EFFECTIVE, SECOND DOSE LOST EFFECTIVENESS AFTER APPROX 30 MINUTES. INCREASED PO METOPROLOL DOSE EFFECTIVE UNTIL APPROX 0400. CARDINE RESTARTED AT BEGININNING OF SHIFT, INCREASED TO 10 MG/HR. CURRENTLY RUNNING AT 5 MG/HR. AFEBRILE, SLIGHLY HYPOTHERMIC. TOLERATING TF WELL; RUNNING AT GOAL OF 45 ML/HR, NO RESIDUALS. NO BM THIS SHIFT. UOP ADEQUATE (1145 ML THIS SHIFT). NO NEW SKIN ISSUES. IV TUBING AND CENTRAL LINE CAPS CHANGED THIS SHIFT. VERONIKA ZHENG RN
[2016-08-27 16:22] LABS: BICARBONATE 24.8 mmol/L (18.0-23.0); LACTATE 1.1 mEq/L (0.50-1.60); PCO2 41 mmHg (35-45)
[2016-08-27 16:25] LABS: PO2 94 mmHg (80-90)
[2016-08-27 16:37] LABS: ALBUMIN 2.3 gm/dL (3.5-5.0); ANION GAP 10.8 (10.0-19.0); BLOOD UREA NITROGEN 34 mg/dL (6-24); CALCIUM 7.9 mg/dL (8.5-10.5); CHLORIDE 118 mMol/L (96-110); CO2 23 mMol/L (22-32); CREATININE 1.1 mg/dL (0.6-1.3); ESTIMATED GFR (MDRD EQUATION) > 60; PHOSPHORUS 1.2 mg/dL (2.5-4.9); POTASSIUM 3.8 mMol/L (3.7-5.1); SODIUM 148 mMol/L (135-145)
--- NOTE | 2016-08-27 16:45 | NUR ---
Significant events: Patient withdraw in all exremities to stimuli. Does localize with LUE to pain. Overbreathes vent, gag and cough induced, was harder to induce cough this afternoon. 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 L) eye sluggish. Ventric remains open with 142 mL of bloody drainage. Hydral given x2, Labetalol x1, Cardene titrated down to 30. LS slightly coarse to wheezy at times. Han patent with 1490 mL out this shift. Total fluids now 150 ml/hr. Tolerates TF well, goal 45 ml/hr, no residuals. Follow up: Continue
[2016-08-28 04:23] LABS: BICARBONATE 24.6 mmol/L (18.0-23.0); PCO2 37 mmHg (35-45); PO2 127 mmHg (80-90)
[2016-08-28 04:26] LABS: HEMATOCRIT 30.5 % (33.0-50.0); HEMOGLOBIN 9.9 g/dL (11.0-16.0); MCH 30.7 pg (27.0-34.0); MCHC 32.5 gm/dL (32.0-36.5); MCV 94.7 fl (83.0-98.0); PLATELET COUNT 214 K/uL (150-450); RBC 3.22 M/uL (3.50-5.50); WBC 7.3 K/uL (4.0-11.0)
[2016-08-28 04:44] LABS: ALBUMIN 2.2 gm/dL (3.5-5.0); ALK PHOS 95 IU/L (33-138); ALT 26 IU/L (12-78); ANION GAP 10.3 (10.0-19.0); AST 28 IU/L (10-40); BLOOD UREA NITROGEN 34 mg/dL (6-24); CALCIUM 7.9 mg/dL (8.5-10.5); CHLORIDE 121 mMol/L (96-110); CO2 24 mMol/L (22-32); ESTIMATED GFR (MDRD EQUATION) > 60; POTASSIUM 4.3 mMol/L (3.7-5.1); SODIUM 151 mMol/L (135-145); TOTAL BILIRUBIN 0.2 mg/dL (0.0-1.5)
[2016-08-28 05:10] LABS: ABSOLUTE NEUTROPHIL CT (ANC) 5.1 K/uL (1.4-9.0); BANDED NEUTROPHIL # 1.7 K/uL (0.0-0.1); BANDED NEUTROPHILS % 23 %; LYMPHOCYTE # 0.9 K/uL (0.8-4.0); LYMPHOCYTE % 13 %; MONOCYTE # 0.4 K/uL (0.0-1.0); SEGMENTED NEUTROPHIL # 3.4 K/uL (1.4-9.0); SEGMENTED NEUTROPHIL % 47 %
--- NOTE | 2016-08-28 05:41 | NUR ---
PT. ON VENT 40% FIO2 WITH SATS 95-98%. ETCO2 26-30. BREATH SOUNDS HAVE BEEN EXPIRATORY WHEEZES T/O. SUCTIONED A SMALL AMOUNT OF THICK CREAM SECRETIONS.
--- NOTE | 2016-08-28 07:18 | NUR ---
Significant Event: PT REMAINS INTUBATED, NO SEDATION. NEURO ASSESSMENT UNCHANGED. W/D X4, OCCASIONAL LOCALIZING WITH LUE. VENTRIC REMAINS OPEN AT ALL TIMES DRAINING BLOODY CSF (AVG 10 ML/HR). CARDENE GTT OFF THIS SHIFT, PRN HYDRALAZINE GIVEN X2 FOR SBP >150, METOPROLOL GIVEN X2 FOR HR>110. TMAX 100.3, APAP GIVEN X1 DOSE WITH POSITIVE EFFECT. SIGNIFICANTLY INCREASED INSPIRATORY AND EXPIRATORY WHEEZING THROUGHOUT THIS SHIFT. CONTINUES TO TOLERATE TF WELL, NO RESIDUALS, NO BM THIS SHIFT. UOP APPROPRIATE. PT +800 ML PAST 24 HOURS. Follow up: CONTINUE VERONIKA ZHENG RN
--- NOTE | 2016-08-28 10:56 | NUR ---
A - NUTRITION F/U. ON VENT. ICP/VENTRIC IN PLACE. NO SEDATION. NO RESPONSE. PT W/ 1+ PREORBITAL EDEMA. NA+ 151, GLU 132, BUN/VENEER JOINER 34/1.0, ALB 2.2. OSMOLITE 1.5 ML/HR RUNNING AT GOAL RATE OF 45 ML/HR W/O DIFFICULTY. D - AT RISK W/ INADEQUATE ORAL INTAKE R/T RELIANCE ON VENT AEB EN. I - GOAL: CONT TO MEET NEEDS VIA EN. M/E - CURRENT SUPPORT MEETING NEEDS, TF STABLE. F/U IN 3-4 DAYS.
--- NOTE | 2016-08-28 16:35 | NUR ---
No changes at this time, continued on 40% Fio2. Slightly coarse at start of shift, sxn moderate-large thick yellow. Increased lung sounds post sxn. Will continue to monitor
--- NOTE | 2016-08-28 16:45 | NUR ---
Significant Event: Patient is still not following commands yet. Fentanyl gtt shut off this afternoon to attempt to wake him up more. He intermittently withdraws upper extremities to nailbed pressure. He withdraws fairly easy in the lower extremities. His right pupil is fixed from a previous injury. I was unable to see reaction in the left pupil. The ventric remains open and still has blood tinged drainage. It was clearing more though. ICP has remained within limits without any issues. Heart rate is still tachy 120-130s. Scheduled metoprolol does help for awhile. Max temp was 101.7. Tylenol given X1. Follow up: Continue to monitor
[2016-08-29 04:48] LABS: PCO2 36 mmHg (35-45); PO2 141 mmHg (80-90)
[2016-08-29 05:04] LABS: ANION GAP 9.1 (10.0-19.0); CALCIUM 8.4 mg/dL (8.5-10.5); CREATININE 1.2 mg/dL (0.6-1.3); POTASSIUM 4.1 mMol/L (3.7-5.1); TOTAL BILIRUBIN 0.5 mg/dL (0.0-1.5); TOTAL PROTEIN 6.1 g/dL (6.0-8.4)
[2016-08-29 05:44] LABS: HEMATOCRIT 29.6 % (33.0-50.0); HEMOGLOBIN 9.7 g/dL (11.0-16.0); MCH 31.6 pg (27.0-34.0); MCHC 32.8 gm/dL (32.0-36.5); MCV 96.4 fl (83.0-98.0); MPV 9.6 fl (9.4-12.4); PLATELET COUNT 230 K/uL (150-450); RBC 3.07 M/uL (3.50-5.50); RDW-CV 14.6 % (11.9-14.6); WBC 8.4 K/uL (4.0-11.0)
--- NOTE | 2016-08-29 05:44 | NUR ---
NO CHANGES THIS SHIFT PT REMAINS ON VENT AT 40% FIO2 WITH SATS 94-98%. ETCO2 22-24. BREATH SOUNDS EXPIRATORY WHEEZES T/O. SUCTIONED A SMALL AMOUNT OF THICK YELLOW SECRETIONS. WILL CONTINUE TO MONITOR.
[2016-08-29 06:50] LABS: ABSOLUTE NEUTROPHIL CT (ANC) 6.4 K/uL (1.4-9.0); BANDED NEUTROPHIL # 2.1 K/uL (0.0-0.1); BANDED NEUTROPHILS % 25 %; LYMPHOCYTE # 0.7 K/uL (0.8-4.0); LYMPHOCYTE % 8 %; MONOCYTE # 0.9 K/uL (0.0-1.0); SEGMENTED NEUTROPHIL # 4.3 K/uL (1.4-9.0); SEGMENTED NEUTROPHIL % 51 %
--- NOTE | 2016-08-29 07:06 | NUR ---
Significant Event: PT REMAINS INTUBATED, NO SEDATION AT THIS TIME. CONTINUES TO W/D IN ALL FOUR EXTREMITIES. PUPILS REMAIN FIXED AT 4MM. DOES NOT OPEN EYES, NO SPONTANEOUS MOVEMENT NOTED. OCCASIONAL SPONTANEOUS COUGH NOTED. TOTAL VENTRIC OUTPUT 74 ML THIS SHIFT WITH NOTABLY LESS BLOOD. REMAINS SR-ST ON MONITOR, SCHEDULED AND IVP METOPROLOL GIVEN PER ORDERS. HYPERTENSIVE AT TIMES, SBP 150S-190S UNTIL 0430 PRN DOSE OF HYDRALAZINE GIVEN; SBP 110S-130S AND CPP 65-75 SINCE. TMAX 100.3, APAP GIVEN X2 DOSES FOR TEMP TRENDING UP, SHIVERING, AND TACHYPNEA IN MID-30S WITH POSITIVE RESULT. LUNG SOUNDS VARIABLE THROUGHOUT SHIFT. CONTINUE TO SUCTION THIN WHITE/JACKSON SECRETIONS. NO BM THIS SHIFT, DR. ZHANG AWARE, NEW ORDERS OBTAINED. UOP APPROPRIATE. Follow up: CONTINUE VERONIKA ZHENG RN
--- NOTE | 2016-08-29 17:42 | NUR ---
Significant Event:Patient started on precedex at 1443 after having increased HR, BP, RR and WOB, and fentanyl IVP did not relieve, precedex at 0.3 mcg/kg/hr and fentanyl gtt started at 25 mcg/hr, pt continues to withdraw x 4 exts but nailbed pressure needs to be deeper after sedation started, Rt pupil fixed and left sluggish, HR 110s up to 140 but improved after sedation restarted, remains in ST, tolertated CPAP for a few hours this AM, ventric remains open with sero-sang drainage, MOM and DUlcolax given and results noted, TF continues at goal with minimal to no residuals, sow to DD with adequate UOP, Tylenol given for low grade fever with t-max = 100.5, blood cultures x 2 and sputum culture obtained today Follow up:Dr Chen plans to discuss possible trach/peg with family
[2016-08-30 04:55] LABS: BICARBONATE 26.9 mmol/L (18.0-23.0); PCO2 37 mmHg (35-45)
[2016-08-30 04:56] LABS: PO2 87 mmHg (80-90)
[2016-08-30 05:12] LABS: ALBUMIN 1.7 gm/dL (3.5-5.0); ANION GAP 8.1 (10.0-19.0); CALCIUM 8.3 mg/dL (8.5-10.5); CREATININE 1.2 mg/dL (0.6-1.3); POTASSIUM 4.1 mMol/L (3.7-5.1); TOTAL BILIRUBIN 0.5 mg/dL (0.0-1.5); TOTAL PROTEIN 5.8 g/dL (6.0-8.4)
[2016-08-30 05:15] LABS: HEMATOCRIT 28.1 % (33.0-50.0); HEMOGLOBIN 8.9 g/dL (11.0-16.0); MCH 30.6 pg (27.0-34.0); MCHC 31.7 gm/dL (32.0-36.5); MCV 96.6 fl (83.0-98.0); MPV 9.2 fl (9.4-12.4); PLATELET COUNT 224 K/uL (150-450); RBC 2.91 M/uL (3.50-5.50); RDW-CV 14.7 % (11.9-14.6); WBC 6.8 K/uL (4.0-11.0)
--- NOTE | 2016-08-30 05:28 | NUR ---
Significant Event: PTS NEURO STATUS REMAINS CONSISTENT; R) PUPIL 4MM/F, L) PUPIL 4 MM/S. W/D X4, OVERBREATHES VENT. DOES NOT OPEN EYES, DOES NOT TRACK. NO GAG REFLEX, SPONTANEOUS COUGH PRESENT. LABILE BP THIS SHIFT; EPISODES OF LABILITY SEEM TO COINCIDE WITH BOWEL MOVEMENTS. SEE EMAR FOR PRN FENTANYL, HYDRALAZINE, AND METOPROLOL GIVEN. LUNGS REMAINS WHEEZY THROUGHOUT. MODERATE BM THIS SHIFT WITH LOOSE/LIQUID STOOL AND FORMED, SOMEWHAT HARD LUMPS MIXED IN. UOP APPROPRIATE THIS SHIFT (850 ML OUT). FLUID BALANCE FOR LAST 24 HRS +884 MLS. VENTRIC OUTPUT 99 MLS. Follow up: SET UP FAMILY CONFERENCE REGARDING TRACH/PEG; CONTINUE WITH NEUROINTENSIVE CARES. VERONKIA ZHENG RN
[2016-08-30 06:16] LABS: ABSOLUTE NEUTROPHIL CT (ANC) 4.6 K/uL (1.4-9.0); BANDED NEUTROPHIL # 1.4 K/uL (0.0-0.1); BANDED NEUTROPHILS % 20 %; LYMPHOCYTE # 1.2 K/uL (0.8-4.0); LYMPHOCYTE % 17 %; MONOCYTE # 0.4 K/uL (0.0-1.0); SEGMENTED NEUTROPHIL # 3.2 K/uL (1.4-9.0); SEGMENTED NEUTROPHIL % 47 %
--- NOTE | 2016-08-30 17:22 | NUR ---
SIGNIFICANT EVENT: PATIENT SEDATED WITH PRECEDEX AT 0.3 MCG/KG/HR. PATIENT DOES NOT OPEN EYES SPONT, TO VOICE, OR TO PAIN. PUPILS UNEQUAL, R) FIXED, L) SLUGGISH REACTION. PATIENT DOES TURN HEAD TOWARDS VOICE, DOES NOT TRACK WITH EYES. PATIENT DOES NOT FOLLOW ANY COMMANDS. ICP/VENTRIC INTACT. NO DRAINAGE AROUND SITE. VENTRIC OPEN AT ALL TIMES, 121 ML OF BLOODY CSF DRAINED THIS HOUR. ICP RANGE 6-14. PATIENT WITHDRAWS TO PAIN IN ALL 4 EXTREMITIES, LESS PRESSURE REQUIRED ON R) SIDE FOR PATIENT TO WITHDRAW THAN L) SIDE. DR CORDOVA AWARE OF ALL ASSESSMENT FINDINGS. PATIENT HAS BEEN SINUS TACHY THIS SHIFT HR 110-120S. PULSES PALPABLE THROUGHOUT, THREADY IN LOWER EXTREMITIES. EDEMA PRESENT, INCREASE IN BILAT HANDS THROUGHOUT THE SHIFT, HANDS ELEVATED WITH 2 PILLOWS ON EACH SIDE. BP STABLE, SBP 110-140, MAP>65. CPP 70-90S. AFEBRILE THROUGHOUT MOST OF THE SHIFT, AT 1700 TEMP 100.1, TYLENOL ADMINISTERED. PATIENT CONTINUES TO REQUIRE VENT SUPPORT, A/C MODE. RR MID 20S SET AT 16, TV 400, PEEP 5, 30 % FIO2. ETCO2 26-29. SPONT/INDUCED COUGH. GAG REFLEX INTACT. SATS MID 90S. BOWEL SOUNDS PRESENT, NO BM. OG INFUSING TUBE FEEDING AT 45ML/HR NO RESIDUALS. GAUTHIER INTACT, ADEQUATE URINE OUTPUT. NO NEW SKIN ISSUES NOTED. PATIENT REPOSITIONED EVERY 2 HOURS. BATH COMPLETED THIS SHIFT. TOTAL FLUIDS D/C'D FOLLOW UP: CONTINUE TO MONITOR, CT OF BRAIN IN AM.
[2016-08-31 04:21] LABS: BICARBONATE 29.9 mmol/L (18.0-23.0); LACTATE 0.8 mEq/L (0.50-1.60); PCO2 43 mmHg (35-45); PO2 80 mmHg (80-90)
[2016-08-31 04:24] LABS: HEMATOCRIT 28.9 % (33.0-50.0); MCH 30.2 pg (27.0-34.0); MCHC 31.1 gm/dL (32.0-36.5); MPV 8.8 fl (9.4-12.4); PLATELET COUNT 263 K/uL (150-450); RBC 2.98 M/uL (3.50-5.50); RDW-CV 14.5 % (11.9-14.6); WBC 7.6 K/uL (4.0-11.0)
[2016-08-31 04:40] LABS: CALCIUM 8.5 mg/dL (8.5-10.5); CREATININE 1.3 mg/dL (0.6-1.3); TOTAL BILIRUBIN 0.5 mg/dL (0.0-1.5); TOTAL PROTEIN 6.2 g/dL (6.0-8.4)
[2016-08-31 04:42] LABS: ALBUMIN 1.8 gm/dL (3.5-5.0)
--- NOTE | 2016-08-31 05:00 | NUR ---
No changes made to vent settings this shift. FiO2 currently at 30% for O2 sats of 94-96%. ETCO2 was 28-30 throughout the shift. Breathsounds ins/exp wheezes throughout bilaterally. Suctioning small amounts of thick yellow secretions. Will continue to monitor patient.
[2016-08-31 05:56] LABS: ABSOLUTE NEUTROPHIL CT (ANC) 5.2 K/uL (1.4-9.0); BANDED NEUTROPHIL # 0.2 K/uL (0.0-0.1); BANDED NEUTROPHILS % 3 %; LYMPHOCYTE # 0.7 K/uL (0.8-4.0); LYMPHOCYTE % 9 %; MONOCYTE # 0.6 K/uL (0.0-1.0); SEGMENTED NEUTROPHIL % 66 %
--- NOTE | 2016-08-31 06:26 | NUR ---
Significant Event: Pt has been unresponsive thoughout this shift. Precedex and fent gtt running. Does not open eyes to voice or pain. R) pupils is fixed, L) pupil is sluggish. Withdraws in all four extremities. No spontaneous movements. ICP/Ventric in place. Open at all times. 91 ml of bloody CSF out this shift. HR's in the 130-140's at the begining of this shift, and hypertensive. Hydralazine and metropolol given with minimal results. Labetalol order recieved. Pt continues on the Vent in A/C this sihft. OG in place with TF running. Han cath in place with good urine output. Bowel sound present, 2 loose BM's this shift. IJ in place, [address] R) radial ART line in place. Follow up: Family meeting with Dr. Rabago at 1300
--- NOTE | 2016-08-31 08:59 | NUR ---
A - NUTRITION F/U. PT ON VENT, UNRESPONSIVE. NA+ 150, GLU 172, BUN/CARTON FORMING MACHINE HELPER 36/1.3, ALB 1.8. PT W/ 3+ EDEMA TO HANDS AND 2+ EDEMA TO FT/ANKLES. TF OSMOLITE 1.5 CONTS AT 45 ML/HR = 1620 KCALS, 68 GM PROTEIN, 823 ML FREE H20. FAMILY TO MEET W/ MD. D - AT RISK W/ DIFFICULTY SWALLOWING R/T RELIANCE ON VENT AEB EN. I - GOAL: CONT TO MEET NEEDS VIA EN. M/E - 1) CONSIDER 200 ML H20 FLUSHES EVERY 6 HRS. 2) WILL F/U IN 3-5 DAYS.
--- NOTE | 2016-08-31 15:40 | NUR ---
Significant Events: Ventric remains opened with 5-10 mL bloody drainage hourly. W/D in all extremities, more difficult in the upper extremities to induce. Does localize with LUE. T max 100.2 this afternoon. Zosyn continues at this time. SR-ST with PACs & PVCs. Hypertensive at times, PRN Labetalol & Hydral given, Norvasc started this afternoon. Dr Chen & Dr Khan at bedside to speak with family. Family has decided to proceed with trach/PEG. Dr Chan will perform the beginning of next week. PICC consult - will be completed in AM Follow up: PICC in am
--- NOTE | 2016-09-01 04:32 | NUR ---
No changes made to vent settings this shift. FiO2 currently at 30% for O2 sats of 94-98%. ETCO2 was 30-32 throughout the shift. Breathsounds clear and diminished throughout with occasional inspiratory wheezes throughout bilaterally. Suctioning small to moderater amounts of thick yellow secretions. Will continue to monitor patient.
[2016-09-01 04:44] LABS: ALBUMIN 1.7 gm/dL (3.5-5.0); CALCIUM 8.3 mg/dL (8.5-10.5); CREATININE 1.2 mg/dL (0.6-1.3); TOTAL BILIRUBIN 0.4 mg/dL (0.0-1.5)
[2016-09-01 04:45] LABS: MAGNESIUM 2.3 mg/dL (1.8-2.6); PHOSPHORUS 3.3 mg/dL (2.5-4.9)
[2016-09-01 04:47] LABS: BASOPHIL % 0.4 %; EOSINOPHIL # 1.3 K/uL (0.0-0.5); EOSINOPHIL % 13.3 %; HEMATOCRIT 27.8 % (33.0-50.0); HEMOGLOBIN 8.9 g/dL (11.0-16.0); IMMATURE GRANULOCYTE # 0.2 K/uL (0.0-0.3); LYMPHOCYTE # 1.3 K/uL (0.8-4.0); LYMPHOCYTE % 12.9 %; MCH 31.2 pg (27.0-34.0); MCV 97.5 fl (83.0-98.0); MONOCYTE # 1.1 K/uL (0.0-1.0); MPV 9.2 fl (9.4-12.4); NEUTROPHIL # (ANC) 5.9 K/uL (1.4-9.0); NEUTROPHIL % 60.4 %; NRBC % 0 /100WBC (0-0.00); PLATELET COUNT 325 K/uL (150-450); RBC 2.85 M/uL (3.50-5.50); RDW-CV 14.5 % (11.9-14.6); WBC 9.7 K/uL (4.0-11.0)
--- NOTE | 2016-09-01 05:39 | NUR ---
Significant Event: PATIENT IS SEDATED, ON THE VENT. VENTRIC REMAINS OPEN, 3-11ML OF BLOODY CSF HOURLY. W/D X4, ONLY TO DEEP PAINFUL STIMULI IN UPPERS. OCCASIONALY MOVES BLE SPONTANEOUSLY. SPONTANEOUS AND INDUCED COUGH. MAX TEMP 101.[address] WITH HRS 100S-120S. PATIENT HYPERTENSIVE AT TIMES, PRN LABETOLOL GIVEN X2. CPP< 60, LUL BOLUS GIVEN . PATIENT OVERBREATHES VENT AT TIMES, ABDOMINAL BREATHING, LUNG SOUNDS SLIGHTLY COURSE TO WHEEZY, SPONTANEOUS COUGH, THICK CREAMY SPUTUM. OSMOLITE 1.5 RUNNING AT 50ML/HR, GOAL, NO RESIDUALS, HYPO ACTIVE BOWELS, NO BM. PRN FENTANYL GIVEN X6 FOR STACKING BREATHES. Follow up:PICC CONSULT
--- NOTE | 2016-09-01 17:06 | NUR ---
PT VENTED ON 30% SATS 96-100%, BREATH SOUNDS SLIGHTLY COARSE THROUGHOUT, SXN A SMALL AMOUNT OF CREAMY WHITE SPUTUM, ETCO2 28-32 MOST OF THE DAY, WILL CONTINUE TO MONITOR UNTIL FURTHER NOTICE
--- NOTE | 2016-09-02 05:08 | NUR ---
No changes made to vent settings this shift. FiO2 currently at 30% for O2 sats of 97-98%. ETCO2 was 29-32 throughout the shift. Breathsounds clear and diminished with insp/exp wheezes at times. Suctioning scant to small amounts of thick white secretions. Will continue to monitor patient.
[2016-09-02 05:40] LABS: ALK PHOS 397 IU/L (33-138); ALT 124 IU/L (12-78); ANION GAP 10.7 (10.0-19.0); AST 68 IU/L (10-40); BLOOD UREA NITROGEN 34 mg/dL (6-24); CALCIUM 8.6 mg/dL (8.5-10.5); CHLORIDE 109 mMol/L (96-110); CO2 28 mMol/L (22-32); CREATININE 1.1 mg/dL (0.6-1.3); ESTIMATED GFR (MDRD EQUATION) > 60; POTASSIUM 3.7 mMol/L (3.7-5.1); SODIUM 144 mMol/L (135-145); TOTAL BILIRUBIN 0.4 mg/dL (0.0-1.5); TOTAL PROTEIN 6.4 g/dL (6.0-8.4)
[2016-09-02 05:42] LABS: ALBUMIN 1.8 gm/dL (3.5-5.0)
[2016-09-02 05:44] LABS: BASOPHIL % 0.4 %; HEMATOCRIT 28.7 % (33.0-50.0); HEMOGLOBIN 9.1 g/dL (11.0-16.0); IMMATURE GRANULOCYTE # 0.2 K/uL (0.0-0.3); IMMATURE GRANULOCYTE % 2.1 %; LYMPHOCYTE # 1.1 K/uL (0.8-4.0); LYMPHOCYTE % 9.7 %; MCH 30.8 pg (27.0-34.0); MCHC 31.7 gm/dL (32.0-36.5); MCV 97.3 fl (83.0-98.0); MONOCYTE # 0.9 K/uL (0.0-1.0); MONOCYTE % 7.9 %; MPV 9.1 fl (9.4-12.4); NEUTROPHIL % 70.9 %; NRBC % 0 /100WBC (0-0.00); PLATELET COUNT 360 K/uL (150-450); RBC 2.95 M/uL (3.50-5.50); RDW-CV 14.1 % (11.9-14.6); WBC 11.2 K/uL (4.0-11.0)
--- NOTE | 2016-09-02 05:53 | NUR ---
patient with no changes from previous shift,unarousable,does not move extremities spontanuously,does not follow simple commands,both pupils are fixed,will withdraw topartial nailbed pressure,clear upper lungs sound,diminished on thebases,thickcreamy secrtions moderate amount,a/c vent mode fio2=30%,g9jdf=05%,abd is soft t.f osmolite runs at 45ml/h no residuals no bowel movement. FOLLOW UP:CONTINUE TO MONITOR PATIENT'S HEMODYNAMIC AND NEURO STATUS CLOSELY.
--- NOTE | 2016-09-02 16:29 | NUR ---
NEURO: Pupils fixed bilaterally. Cough, gag, and corneal reflex present. Decorticate posturing with sternal pressure. Flexion withdrawal in all four extremities. Overbreathes set vent rate of 16 in mid20s. CARDIO: Hypotensive in morning, hypertensive in afternoon. 20 mg Labatelol given x 1. Afebrile with fan on. Mild tachycardia. HR 90s-100s. GI: Small BM. Milk of magnesia started today.
--- NOTE | 2016-09-02 17:02 | NUR ---
PT VENTED ON 30% SATS 96-98%, BREATH SOUNDS SLIGHTLY COARSE THROUGHOUT BUT CLEARS SOME WITH SXN, SXN A SMALL AMOUNT OF WHITE SPUTUM, ETCO2 26-30 MOST OF THE DAY, WILL CONTINUE TO MONITOR UNTIL FURTHER NOTICE
--- NOTE | 2016-09-03 04:05 | NUR ---
Significant Event: Pupils 4mm and fixed. Decorticate posturing noted with nailbed pressure. Ventric open at all times. Drained 82 ml bloody CSF. ICPs 4-10. Became tachycardic in 130s, resolved with labetalol 20 mg. 90-100s the rest of shift. Afebrile. A/C 30%. Inspiratory wheeze on R) side, clear on L). TF running at goal of 45 ml/hr. No residuals. Active bowel sounds. No BM. Han drained 825 ml urine. 2 open areas on coccyx. Fent 50 mcg given x1. Follow up: Continue
[2016-09-03 04:17] LABS: ANION GAP 9.2 (10.0-19.0); CALCIUM 8.3 mg/dL (8.5-10.5); CREATININE 1.2 mg/dL (0.6-1.3); MAGNESIUM 2.4 mg/dL (1.8-2.6); POTASSIUM 4.2 mMol/L (3.7-5.1); TOTAL BILIRUBIN 0.4 mg/dL (0.0-1.5); TOTAL PROTEIN 6.1 g/dL (6.0-8.4)
[2016-09-03 04:24] LABS: ALBUMIN 1.7 gm/dL (3.5-5.0)
[2016-09-03 04:25] LABS: BASOPHIL % 0.4 %; EOSINOPHIL # 0.7 K/uL (0.0-0.5); EOSINOPHIL % 6.3 %; HEMATOCRIT 26.5 % (33.0-50.0); HEMOGLOBIN 8.4 g/dL (11.0-16.0); IMMATURE GRANULOCYTE # 0.2 K/uL (0.0-0.3); IMMATURE GRANULOCYTE % 2.1 %; LYMPHOCYTE % 8.6 %; MCH 30.9 pg (27.0-34.0); MCHC 31.7 gm/dL (32.0-36.5); MCV 97.4 fl (83.0-98.0); MONOCYTE # 0.9 K/uL (0.0-1.0); MONOCYTE % 7.6 %; MPV 9.1 fl (9.4-12.4); NEUTROPHIL # (ANC) 8.4 K/uL (1.4-9.0); NRBC % 0 /100WBC (0-0.00); PLATELET COUNT 331 K/uL (150-450); RBC 2.72 M/uL (3.50-5.50); RDW-CV 13.9 % (11.9-14.6); WBC 11.3 K/uL (4.0-11.0)
--- NOTE | 2016-09-03 04:59 | NUR ---
No vent changes made this shift, continues on FiO2 30%, Peep of 5. Overbreathes RR of 16, EtCO2 26-29 this shift. BrSs clear and dim on Left, inspiratory wheeze on Right. Suctioned scant amounts of thick, cream colored sputum from ETT. Continue per plan of care.
--- NOTE | 2016-09-03 17:17 | NUR ---
PT VENTED ON 30% SATS 96-98%, BREATH SOUNDS CLEAR AND DIMINISHED THROUGHOUT, SXN A SMALL OF CREAMY SPUTUM, WILL CONTINUE TO MONITOR UNTIL FURTHER NOTICE
--- NOTE | 2016-09-03 17:33 | NUR ---
Significant Event: Patient does not respond to verbal stimuli. He will withdraw to pain in all extremities. At times he seem to be decorticate posturing especially with sternal rub. His pupils are 4 and fixed. We had a conference with family today and their wishes will be to continue and Trach/PEG this week. HR was controlled today and was even as low as 90s today. Blood pressure is boarderline at times to keep CPP >60 after repositioning, but he recovers. Follow up: Continue
--- NOTE | 2016-09-04 04:43 | NUR ---
No vent changes made this shift. EtCO2 26-29. BrSs inspiratory wheeze on right side, clear and dim on left. Suctioned scant amounts of thick, cream secretions from ETT. Not awake, no sedation, over breathes ventilator, has cough. Continue per plan of care.
[2016-09-04 05:44] LABS: ANION GAP 11.1 (10.0-19.0); CALCIUM 8.1 mg/dL (8.5-10.5); CREATININE 1.2 mg/dL (0.6-1.3); POTASSIUM 4.1 mMol/L (3.7-5.1); TOTAL BILIRUBIN 0.4 mg/dL (0.0-1.5); TOTAL PROTEIN 6.2 g/dL (6.0-8.4)
[2016-09-04 05:45] LABS: ALBUMIN 1.7 gm/dL (3.5-5.0)
[2016-09-04 05:49] LABS: BASOPHIL % 0.3 %; EOSINOPHIL # 0.7 K/uL (0.0-0.5); EOSINOPHIL % 5.7 %; HEMATOCRIT 25.8 % (33.0-50.0); HEMOGLOBIN 8.1 g/dL (11.0-16.0); IMMATURE GRANULOCYTE # 0.3 K/uL (0.0-0.3); IMMATURE GRANULOCYTE % 2.5 %; LYMPHOCYTE # 1.1 K/uL (0.8-4.0); LYMPHOCYTE % 9.8 %; MCH 30.3 pg (27.0-34.0); MCHC 31.4 gm/dL (32.0-36.5); MCV 96.6 fl (83.0-98.0); MONOCYTE # 0.8 K/uL (0.0-1.0); MONOCYTE % 7.2 %; NEUTROPHIL # (ANC) 8.7 K/uL (1.4-9.0); NEUTROPHIL % 74.5 %; NRBC % 0 /100WBC (0-0.00); PLATELET COUNT 368 K/uL (150-450); RBC 2.67 M/uL (3.50-5.50); RDW-CV 13.8 % (11.9-14.6); WBC 11.7 K/uL (4.0-11.0)
--- NOTE | 2016-09-04 05:59 | NUR ---
Significant Event: PT REMAINS INTUBATED, NO SEDATION, FENTANYL GTT RUNNING AT 25 MCG/HR FOR COMFORT. NEURO ASSESSMENT UNCHANGED THIS SHIFT; PUPILS FIXED AT 4MM, DECORTICATE POSTURING TO BUE, W/D TO BLE, SPONTANEOUS COUGH, NO TRACKING, NO SPONTANEOUS MOVEMENT OR EYE OPENING. TACHY THIS SHIFT, RATES 90S-120S; BP HYPOTENSIVE AT TIMES, SBP 90S-120S, MAPS 60S-100S. LUL-SYNEPHERINE BOLUS GIVEN X4 DOSES THIS SHIFT. TMAX 98.8. WHEEZES THROUGHOUT, OVERBREATHES VENT CONSISTENTLY. CONTINUES TO TOLERATE TF WELL, NO RESIDUALS THIS SHIFT. INSULIN ADMINISTERED PER SLIDING SCALE X2 THIS SHIFT. UOP APPROPRIATE. Follow up: CONTINUE VERONIKA ZHENG RN
--- NOTE | 2016-09-04 08:22 | NUR ---
A - NUTRITION F/U. ON VENT, NO SEDATION. GLU 126, BUN/ROUTER SETTER 35/1.2, ALB 1.7, WBC 11.7. PT W/ 2+ EDEMA TO HANDS, 1+ TO BLE. OSMOLITE 1.5 AT 45 ML/HR INFUSING W/O DIFFICULTY. TRACH/PEG THIS WEEK. D - AT RISK W/ DIFFICULTY SWALLOWING R/T RELAINCE ON VENT AEB EN. I - GOAL: CONT TO MEET 100% NEEDS VIA EN. M/E - EN STABLE. CONT CURRENT SUPPORT. F/U IN 3-5 DAYS.
--- NOTE | 2016-09-04 13:08 | NUR ---
Talked with DENA Hitchcock who states they were talking about family wanting to get Facundo back to [facility] so he could pass away when the time came and they were wondering about the cost of getting him there. I phoned over to Hayden at [facility], , asked him how much a flight would be from [place], [place] to [facility] if he had to quote me without knowing the exact town in [facility]. Hayden tells me that just based on what I told him about Facundo and the medical managment plus flight costs would be anywere from $120,000-140,000 at this time. Once I knew the exact town from family, Hayden tells me I can call back and he can give me a near exact quote at that time. I anticipate that Facundo will be getting trach and peg this week and if he remains on the vent, then we will have to look into [facility] or [facility]. I went ahead and faxed information over to Sienna at [facility] as DENA Cash had already talked with her about his case so she was expecting information and will be on site later this week to get more information and talk with family at that time as well. Will continue to follow and assist. Plan on meeting with family when they are in the room next.
--- NOTE | 2016-09-04 16:50 | NUR ---
PT VENTED ON 30% SATS 94-98%, BREATH SOUNDS SLIGHLTY COARSE WITH SOME WHEEZES THROUGHOUT AT TIMES, SXN A SMALL AMOUNT OF WHITE SPUTUM, ETCO2 26-30 MOST OF THE DAY, WILL CONTINUE TO MONITOR
--- NOTE | 2016-09-04 17:01 | NUR ---
Significant Event: Continues on vent. Continuous fentanyl at 25mcg/hr and 50mcg bolus given x2 due to tachypnea with stimulation. Labile blood pressure. 1 unit PRBCs given. No changes in neuro assessment. Family present intermittently. Follow up: continue
[2016-09-05 05:24] LABS: ANION GAP 11.2 (10.0-19.0); CALCIUM 8.2 mg/dL (8.5-10.5); CREATININE 1.3 mg/dL (0.6-1.3); POTASSIUM 4.2 mMol/L (3.7-5.1); TOTAL PROTEIN 6.3 g/dL (6.0-8.4)
[2016-09-05 05:28] LABS: ALBUMIN 1.8 gm/dL (3.5-5.0); TOTAL BILIRUBIN 0.7 mg/dL (0.0-1.5)
[2016-09-05 05:38] LABS: BASOPHIL # 0.1 K/uL (0.0-0.2); BASOPHIL % 0.6 %; EOSINOPHIL # 0.6 K/uL (0.0-0.5); HEMATOCRIT 28.8 % (33.0-50.0); HEMOGLOBIN 9.2 g/dL (11.0-16.0); IMMATURE GRANULOCYTE # 0.3 K/uL (0.0-0.3); IMMATURE GRANULOCYTE % 2.1 %; LYMPHOCYTE # 1.1 K/uL (0.8-4.0); LYMPHOCYTE % 9.2 %; MCH 30.4 pg (27.0-34.0); MCHC 31.9 gm/dL (32.0-36.5); MONOCYTE # 0.7 K/uL (0.0-1.0); MONOCYTE % 6.2 %; NEUTROPHIL # (ANC) 9.2 K/uL (1.4-9.0); NEUTROPHIL % 76.9 %; NRBC % 0 /100WBC (0-0.00); PLATELET COUNT 372 K/uL (150-450); RBC 3.03 M/uL (3.50-5.50); RDW-CV 14.5 % (11.9-14.6); WBC 11.9 K/uL (4.0-11.0)
--- NOTE | 2016-09-05 06:35 | NUR ---
Significant Event: PT REMAINS INTUBATED, NO SEDATION, FENTANYL GTT AT 25 MCG/HR. DOES NOT OPEN EYES, DOES NOT FOLLOW COMMANDS. DECORTICATE POSTURING IN BUE, W/D IN BLE. NO SPONTANEOUS MOVEMENT NOTED. SPONTANEOUS COUGH, INDUCED GAG PRESENT. PUPILS REMAIN 4/F. HR 98-125 THIS SHIFT, CPP 65-90. NO LUL-SYNEPHERINE GIVEN BY THIS RN. TMAX 99.3. VENT SETTINGS REMAIN UNCHANGED. NPO SINCE MIDNIGHT FOR TRACH/PEG TODAY. UOP APPROPRIATE. SEE FLOWSHEET FOR SKIN ASSESSMENT. Follow up: TRACH/PEG TODAY. VERONIKA ZHENG RN
--- NOTE | 2016-09-05 17:13 | NUR ---
Significant Event: Trach and peg placement this shift. Tolerated well. Pupils remain 4/fixed bilaterally. Withdraws from pain in all 4 extremities. Fentanyl gtt turned off. Spontanous cough noted at times. ICP drained 95. Closed at 1700, only to upen if ICP >20 for [address] Large amounts of thick sputum, blood tinged since tracheostomy placement. NPO until 2200, then may restart tube feedings and flushes. Frequent oral cares done this shift. Follow up: continue plan of care.
--- NOTE | 2016-09-05 17:17 | NUR ---
D: HEAD BLEED I: VENT, DUONEB R: PT REMAINED ON 30% FIO2 T/O DAY, BS C&D IN UPPER LOBES & DIM IN BASES, SXNED OUT SMALL THICK CREAMY SECRETIONS, PT DID GET A TRACH & PEG PLACED TODAY @ 14:00, PT HAS 8.0 TRACH, NO OTHER SIGNIFICANT CHANGES T/O DAY P: CONT.
--- NOTE | 2016-09-06 03:46 | NUR ---
No changes to vent settings t/o shift, continued in A/C mode, 30% Fio2. Lung sounds diminished bases with occ ex wheeze right>left. Sxn scant-small blood-tinged at start of shift, changed to clear. Will continue to monitor
[2016-09-06 05:30] LABS: ANION GAP 11.1 (10.0-19.0); CALCIUM 8.4 mg/dL (8.5-10.5); CREATININE 1.3 mg/dL (0.6-1.3); POTASSIUM 4.1 mMol/L (3.7-5.1); TOTAL BILIRUBIN 0.8 mg/dL (0.0-1.5); TOTAL PROTEIN 6.5 g/dL (6.0-8.4)
[2016-09-06 05:31] LABS: ALBUMIN 1.9 gm/dL (3.5-5.0)
[2016-09-06 05:35] LABS: BASOPHIL # 0.1 K/uL (0.0-0.2); BASOPHIL % 0.3 %; EOSINOPHIL # 0.5 K/uL (0.0-0.5); EOSINOPHIL % 3.2 %; HEMATOCRIT 29.1 % (33.0-50.0); HEMOGLOBIN 9.6 g/dL (11.0-16.0); IMMATURE GRANULOCYTE # 0.2 K/uL (0.0-0.3); LYMPHOCYTE # 0.7 K/uL (0.8-4.0); LYMPHOCYTE % 4.3 %; MCV 93.9 fl (83.0-98.0); MONOCYTE # 0.6 K/uL (0.0-1.0); MONOCYTE % 4.1 %; NEUTROPHIL # (ANC) 13.7 K/uL (1.4-9.0); NEUTROPHIL % 87.1 %; NRBC % 0 /100WBC (0-0.00); PLATELET COUNT 444 K/uL (150-450); RDW-CV 13.8 % (11.9-14.6); WBC 15.8 K/uL (4.0-11.0)
--- NOTE | 2016-09-06 13:52 | NUR ---
1130 Debra from [facility] up to see Facundo today. She tells me based on what she has seen, they are just going to keep any eye on him for a while. If he was to come to their facility, he would need to be able to particpate with therapies for short amounts of time and show that he is weanable from the vent. At this time, he is not able to do either. Debra also says that if he were to go to a Vent dependent unit for mcc care, he would need Medicaid coverage which he does not have. I let her know I would follow up with Alejandra in our [facility] dept to try to touch base with family to talk about this and then go from there. I did update Alejandra to the situation and she says she will look into it and see what she can do. CM to continue to follow and assist.
--- NOTE | 2016-09-06 16:38 | NUR ---
PT DOES NOT FOLLOW COMMANDS, DECORTICATE TO BUE AND W/DRAWS TO BLE. ICP 8-26 WITH VENTRIC OPENED X1 WITH 15MLS BLD-TINGED DRNG. OVERBREATHES VENT, CPAP TRIAL FOR 2HRS WITH TV 300'S, SATS MID 90'S, LS C/D, WEAK SPONT COUGH PRESENT, AND PIP'S UPPER TEEN'S WITH RR UPPER 20'S. SR-ST HR 90-110'S, LOPRESSOR GIVEN WITH AM LISINOPRIL HELD FOR SBP 90-100. R) PICC WITH NS AT TKO, CONT ON ZOSYN. GAUTHIER WITH ADEQ UOP, TOLERATING TF AT GOAL OF 45 PER PEG TUBE. TRACH WITH SMALL BLDY DRNG.
--- NOTE | 2016-09-06 17:16 | NUR ---
D: RESPIRATORY FAILURE I: V2OO, DUONEB Q4 R: BREATH SOUNDS SLIGHTLY COARSE TO DIMINISHED AND CLEAR ,SXN- SMALL THICK CREAM/WHITE, TRACH SECURE, IN CPAP 5/PS 10 FOR APPROX 2HRS-TOLERATED WELL P: CONTINUE TO WEAN VENTILATOR
[2016-09-07 04:50] LABS: ALBUMIN 1.8 gm/dL (3.5-5.0); ANION GAP 10.8 (10.0-19.0); CALCIUM 8.3 mg/dL (8.5-10.5); CREATININE 1.2 mg/dL (0.6-1.3); POTASSIUM 3.8 mMol/L (3.7-5.1); TOTAL BILIRUBIN 0.5 mg/dL (0.0-1.5); TOTAL PROTEIN 6.7 g/dL (6.0-8.4)
[2016-09-07 04:54] LABS: BASOPHIL % 0.3 %; EOSINOPHIL # 0.5 K/uL (0.0-0.5); EOSINOPHIL % 4.3 %; HEMATOCRIT 28.8 % (33.0-50.0); HEMOGLOBIN 9.5 g/dL (11.0-16.0); IMMATURE GRANULOCYTE # 0.1 K/uL (0.0-0.3); IMMATURE GRANULOCYTE % 0.7 %; LYMPHOCYTE # 0.6 K/uL (0.8-4.0); MCH 30.7 pg (27.0-34.0); MCV 93.2 fl (83.0-98.0); MONOCYTE # 0.6 K/uL (0.0-1.0); MONOCYTE % 4.9 %; MPV 8.7 fl (9.4-12.4); NEUTROPHIL # (ANC) 10.1 K/uL (1.4-9.0); NEUTROPHIL % 84.8 %; NRBC % 0 /100WBC (0-0.00); PLATELET COUNT 497 K/uL (150-450); RBC 3.09 M/uL (3.50-5.50); RDW-CV 13.5 % (11.9-14.6); WBC 11.9 K/uL (4.0-11.0)
--- NOTE | 2016-09-07 05:21 | NUR ---
patient continue the same with no changes to his neuro status,does not follow simple commands,does not open his eyes ,will posture on both hands when suctioned or repositioned,withdraw on both legs,pupils are fixed and do not react to light,clear upper lungs souund diminished on the bases,thick creamy secrtions when suctionedtolerate t.f osmolite at 45ml/h,no bowel movement. FOLLOW UP:CONTINUE TO MONITOR PATIENT;S HEMODYNAMIC AND NEURO STATUS CLOSELY.
--- NOTE | 2016-09-07 10:52 | NUR ---
A - NUTRITION FOLLOW-UP TRACH/PEG 09/05. ICP/VENTRIC. VENT. NO BM YET. LABS: GLU 165, BUN 27, ALB 1.8, PRE-ALB 16 (08/26) NEW MEDS: ZESTRIL. DIET: TF VIA PEG W/ OSMOLITE 1.5 AT 45ML/HR WITH 150ML WATER FLUSHES EVERY 6HR, PROVIDING 1620 KCAL, 68 GRAMS PROTEIN, 823ML FREE WATER (1423ML W/ FLUSHES). TOLERATING TF PER RN. D - INADEQUATE ORAL INTAKE RELATED TO INABILITY TO FEED ORALLY EVIDENCED BY VENT AND NEED FOR SENIOR CARE EN. I - CONTINUE TF W/ OSMOLITE 1.5 AT 45ML/HR WITH 150ML WATER FLUSHES Q6HR M/E - GOAL: PT WILL CONTINUE TO TOLERATE EN AND MEET >75% OF NEEDS IN 4-6 DAYS.
--- NOTE | 2016-09-07 12:29 | NUR ---
Donna from [facility] is here. Will have her look at patients case to see if LTACH approptiate.
--- NOTE | 2016-09-07 16:18 | NUR ---
Significant Event: Patient remains intubated without sedation. Does not open eyes, pupil remain fixed. Does not follow commands. Continues to extend in bilateral UE and withdraw in BLE. SR with HR 100-120's .SBP 70-170. Prior to giving scheduled lopressor, norvasc, prinivil sbp was 129-170's. Approx 30-60minutes post meds sbp 70-113. Changed time of norvasc to pm dosage starting 09/08. Held 140dose of lopressor. Max temp 99. Opened ventricx3, dark blood tinged CSF drainage. Drained a total of 27 mls CSF. CPAP trialx2, tolerates well. Lungs ascultated coarse with inspiratory wheeze-slightly coarse. Han patent 30-235ml/h. Osmolite contines at 45ml/hgoal via PEG tube with no residual. Hypoactive bowel sounds,no bm. Follow up:Continue
--- NOTE | 2016-09-08 03:20 | NUR ---
SIGNIFICANT EVENT: puils 4 and fixed. patient withdraws BLE, extends LUE, and withdraws RUE. ventric at 10cm above auditory canal. Ventric opened multiple times throughout the shift for ICPs greater than 20. Ventric fluid is dark blood tinged. BP 110-140s. tachycardic. A/C, fi02 at 40%, PEEP 5, PS 10, TV 400. Lungs clear to coarse, overbreathes, bloody secretions from ET and in mouth. PEG running osmo at 45/h. Han had some clot formations and blood tinged sediment which cleard up by end of shift. FOLLOW UP:
[2016-09-08 04:32] LABS: ALT 64 IU/L (12-78); AST 63 IU/L (10-40); BLOOD UREA NITROGEN 27 mg/dL (6-24); CALCIUM 8.3 mg/dL (8.5-10.5); CHLORIDE 103 mMol/L (96-110); CO2 27 mMol/L (22-32); CREATININE 1.1 mg/dL (0.6-1.3); ESTIMATED GFR (MDRD EQUATION) > 60; SODIUM 136 mMol/L (135-145); TOTAL BILIRUBIN 0.4 mg/dL (0.0-1.5); TOTAL PROTEIN 6.4 g/dL (6.0-8.4)
[2016-09-08 04:33] LABS: ALBUMIN 1.8 gm/dL (3.5-5.0); ALK PHOS 409 IU/L (33-138)
[2016-09-08 04:38] LABS: BASOPHIL # 0.1 K/uL (0.0-0.2); BASOPHIL % 0.5 %; EOSINOPHIL # 0.5 K/uL (0.0-0.5); EOSINOPHIL % 5.1 %; HEMATOCRIT 27.6 % (33.0-50.0); IMMATURE GRANULOCYTE # 0.1 K/uL (0.0-0.3); IMMATURE GRANULOCYTE % 0.7 %; LYMPHOCYTE % 9.5 %; MCH 30.9 pg (27.0-34.0); MCHC 32.6 gm/dL (32.0-36.5); MCV 94.8 fl (83.0-98.0); MONOCYTE # 0.7 K/uL (0.0-1.0); MONOCYTE % 6.8 %; MPV 8.9 fl (9.4-12.4); NEUTROPHIL # (ANC) 8.2 K/uL (1.4-9.0); NEUTROPHIL % 77.4 %; NRBC % 0 /100WBC (0-0.00); PLATELET COUNT 494 K/uL (150-450); RBC 2.91 M/uL (3.50-5.50); RDW-CV 13.4 % (11.9-14.6); WBC 10.6 K/uL (4.0-11.0)
--- NOTE | 2016-09-08 05:06 | NUR ---
No changes made to vent settings this shift. FiO2 currently 40% for O2 sats of 95-100%. ETCO2 was 24-29 throughout the shift. Breathsounds expiratory wheezes throughout bilaterally at times. Suctioning small to moderate amounts of thick creamy secretions. Will continue to monitor patient.
--- NOTE | 2016-09-08 12:35 | NUR ---
Called [facility] [phone] and left voicemail asking them what they are thinking, if pt will be LTAC candidate, Donna had evaluated pt yesterday. Waiting call back.
--- NOTE | 2016-09-08 16:13 | NUR ---
Significant Event: Patient remains intubated without sedation. CPAP trial for about four hours today, tolerated well. ST HR 100-120's. SBP 80-150, labile.Discontinued lisinopril. Held lopressor dose. Afebrile. right side asculted sligly coarse with inspiratory wheeze. left asultated slightly coarse. Trach 8.0 remains intact, inner canula changed. Hypoactive bowel sounds, BM x1 large. Osmolite continues at 45ml/h,goal. Residuals 60 and 160.Accuhecks q6h, treated. Follow up:continue
--- NOTE | 2016-09-09 04:44 | NUR ---
No vent changes made this shift, continues in AC FiO2 at 40%. EtCO2 has been 23-33 this shift. BrSs at times wheezes t/o, suctioned scant amount of thin, white secretions from trach. RR high 20s most of shift. Has had a few spontaneous coughs. Continue per plan of care.
--- NOTE | 2016-09-09 05:30 | NUR ---
Significant Event: VENTRIC OPENED 4 TIMES 80ML DRAINED, HEART RATES 110-130, MD AWARE OF BORDERLINE BP, RESP RATE 20-30, 3 BM'S, BATH AND TRACH CARE COMPLETE Follow up:
--- NOTE | 2016-09-09 12:58 | NUR ---
SIGNIFICANT EVENT: PATIENT NOT ON ANY SEDATION MEDICATIONS. PATIENT ONLY OPENS EYES PART WAY TO PAIN. DOES NOT TRACK WHEN EYES OPEN, DOES NOT TILT HEAD TOWARDS VOICE WHEN EYES OPEN. PATIENT DOES NOT FOLLOW ANY COMMANDS. PATIENT DOES NOT HAVE ANY SPONT MOVEMENTS. WITH ORAL CARES, PATIENT GRINDS TEETH TOGETHER AND BITES ON SUCTION. ICP/VENTRIC INTACT, NO DRAINAGE AROUND SITE. ICP RANGE THROUGHOUT THE SHIFT 10-18. VENTRIC CLOSED UNLESS ICP >20 FOR 10 MINUTES . ICP 22-24 X5 SO FAR TODAY, MD AWARE, VENTRIC OPEN X5. PRIOR TO OPENING VENTRIC, ALLIGNING BODY OF PATIENT, EVALUATED AND TREATED ANY CAUSES THAT COULD TO LEAD TO ELEVATED ICP. RUST COLORED CSF DRAINED. PATIENT WITHDRAWS TO PAIN IN BILAT LOWER EXTREMITIES. DECORTICATE POSTURING IN BILAT UPPER EXTREMITIES. PATIENT HAS BEEN IN SINUS TACHY RHYTHM, HR 110S. PULSES PALPABLE THROUGHOUT. SOME EDEMA PRESENT. AFEBRILE. BP STABLE. SBP 90-140S, MAP>65. PATIENT IS CURRENTLY IN CPAP MODE, FIO2 40%, PEEP/PSV 5/10, RR 20-30, ETCO2 26-30. SPONT/INDUCED COUGH. TRACH WAS OOZING AT THE BEGINING OF THE SHIFT, DR MORA NOTIFIED, SURGICEL AND SILVER NITRATE USED TO STOP BLEEDING. NO COMPLICATIONS SINCE. BOWEL SOUNDS PRESENT, NO BM TODAY. TUBE FEEDING THROUGH PEG TUBE OSMOLITE AT 45ML/HR, NO RESIDUALS. GAUTHIER INTACT, PERICARES EVERY 4 HOURS. ADEQUATE URINE OUTPUT. NO NEW SKIN ISSUES. R) PICC NO COMPLICATIONS INFUSING NS AT 10ML/HR. FOLLOW UP: CONTINUE TO MONITOR, XRAY IN AM, CT OF HEAD ON 09/11.
--- NOTE | 2016-09-09 17:09 | NUR ---
D: RESPIRATORY FAILURE Il V2OO, DUONEB R: BREATH SOUNDS EXPIRATORY/INSPIRATORY OCCASIONAL WHEEZE TO SLIGHTLY COARSE, SXN- SCANT/SMALL THICK WHITE/CREAM, TRACH SECURE, IN CPAP 5/ PS 10 FOR APPROX 3HRS- TOLERATES WELL P: CONTINUE CURRENT THERAPY
--- NOTE | 2016-09-09 19:31 | NUR ---
NO CHANGES SINCE LAST SHIFT SUMMARY NOTE
[2016-09-10 04:22] LABS: ANION GAP 10.1 (10.0-19.0); BLOOD UREA NITROGEN 25 mg/dL (6-24); CALCIUM 8.5 mg/dL (8.5-10.5); CHLORIDE 100 mMol/L (96-110); CO2 27 mMol/L (22-32); ESTIMATED GFR (MDRD EQUATION) > 60; PHOSPHORUS 2.9 mg/dL (2.5-4.9); POTASSIUM 4.1 mMol/L (3.7-5.1); SODIUM 133 mMol/L (135-145)
[2016-09-10 04:23] LABS: ALBUMIN 1.8 gm/dL (3.5-5.0)
--- NOTE | 2016-09-10 04:43 | NUR ---
No vent changes made this shift. No significant respiratory events. EtCO2 23-34, RR 20-30. Continue per plan of care.
--- NOTE | 2016-09-10 05:44 | NUR ---
Significant Event: Follow up:OPENED VENTRIC DRAIN 6 TIMES TO DECREASE ICP'S, STILL RESPONDS TO PAIN ONLY, TURNED Q2 HOURS, SPON COUGH, BREATHS ABOVE THE VENT, 2 LARGE BOWEL MOVEMENTS, URINE OUTPUT IS GOOD, HEART RATE BETWEEN 100-120, BP BETWEEN 140-190 SYSTOLIC FROM [id number] AND 100-140 SYSTOLIC FROM [id number]
--- NOTE | 2016-09-10 17:23 | NUR ---
D: HEAD BLEED I: VENT, DUONEB R: PT REMAINED ON 40% FIO2 T/O DAY, BS I WHEEZES TO C&D BILATERALLY, SXNED OUT SCANT TO SMALL THICK CREAMY SECRETIONS, PT WAS IN CPAP/PS FROM 0900 TO 1300 TODAY BEFORE BEING PLACED BACK INTO AC DO TO INCREASED WOB, ICP INCREASES & HR INCREASES P: CONT.
--- NOTE | 2016-09-10 17:36 | NUR ---
significant event: PATIENT NOT ON ANY SEDATION DRIPS. OPENS EYES PART WAY ONLY TO PAINFUL STIMULI. DOES NOT TILD HEAD TOWARDS VOICE, DOES NOT TRACK. ICP/VENTRIC INTACT, NO DRAINAGE AROUND SIDE. VENTRIC CLOSE THROUGHOUT THE SHIFT, UNLESS ICP>20 FOR 10 MINUTES DESPITE MEASURE TO DECREASE. VENTRIC OPENED X6 IN THE LAST 12 HOURS. A TOTAL OF 85 ML OF CSF DRAINED. PATIENT DOES NOT FOLOW ANY COMMANDS. PATIENT WITHDRAWS TO PAIN IN BILAT LOWER EXTREMITIES AND DECORTICATE POSTURING IN BILAT UPPER EXTREMITIES. PATIENT HAS BEEN IN SINUS TACHYCARDIA, HR 110-130S. PULSES PALPABLE THROUGHOUT. BP STABLE, ABO 110-140S, MAP>65 AT ALL TIMES, CPP WITHIN NORMAL RANGE. AFEBRILE. PATIENT ON THE VENT THROUGHOUT THE SHIFT, CPAP MODE FOR ABOUT 4 HOURS, TOLERATED WELL. NOW BACK IN A/C, 40% FIO2, TV 400S, PEEP 5, OVER BREATHS VENT RR, ETCO2 25-31. SPONT/INDUCED COUGH, PRODUCTIVE. BOWEL SOUNDS PRESENT, NO BM. OSLOLITE TUBE FEEDING THROUGH PEG TUBE, NO RESIDUALS. GAUTHIER INTACT, ADEQUATE URINE OUTPUT. NO NEW SKIN ISSUES NOTED. CT IN AM. FOLLOW UP: CONTINUE TO MONITOR
--- NOTE | 2016-09-11 03:37 | NUR ---
No vent changes, continues in CMV for the night. CT trip with out complication this AM. Continue per plan of care.
[2016-09-11 05:04] LABS: POTASSIUM 4.3 mMol/L (3.7-5.1)
--- NOTE | 2016-09-11 05:45 | NUR ---
Significant Event: VENTRIC OPENED X6 OVERNIGHT. 86ML OF ENRIKE COLORED CSF DRAINED. HR 100-120'S. SBP 90-150'S. TMAX OF 99.8. FREQUENT COUGH. LARGE AMOUNTS OF ORAL SECRETIONS, CREAMY, BLOODY AT TIMES. FREQUENT ORAL CARES. HYPOACTIVE BOWEL SOUNDS. HIGH RESIDUALS, 70ML, 300ML, 230ML. NO BM OVERNIGHT. MARGINAL UOP, 555ML OUT. BATH COMPLETE, SHAVED. FENTANYL GIVEN X1. CT OF HEAD COMPLETE. Follow up: CT RESULTS. POSSIBLE MEETING WITH FAMILY.
--- NOTE | 2016-09-11 07:29 | NUR ---
A - NUTRITION F/U. ON VENT PER TRACH. NO NEW LABS. VENTRIC OPENED MULTIPLE TIMES DURING NOC. PT W/ 1+ EDEMA T/O. MARGINAL UOP. TF VIA PEG OSMOLITE 45 ML/HR CONTS. RESIDUALS LAST NOC 300ML, 230 ML. ADMIT WT: 126#, CBW: 128#. D - AT RISK W/ DIFFICULTY SWALLOWING R/T TRACH AEB PEG FEEDINGS. I - GOAL: CONT TO MEET 100% OF NEEDS VIA EN. M/E - IF RESIDUALS REMAIN HIGH, CONSIDER REGLAN. WILL F/U IN 3-5 DAYS.
--- NOTE | 2016-09-11 13:28 | NUR ---
Talked with at bedside and daughter on phone, had questions about how many days insurance pt has, told them technically 90 acute days and another 60 days if he uses all 90 days, but that insurance expects us to move him to next level of care when he qualifies for that, so have made referral to [facility], they are not able to accept, so made referral to [facility], they are able to accept so anticipate would go to [facility] in [place] when ready for dc (later Donna with [facility] said they also can accept to [facility] so that is an option to be closer to them). Daughter voices understanding and will explain to her mom. Gave update to Donna at [facility], she will come out on this week, will touch base with infant caregiver on Sunday and would be happy to meet family on to talk with them about LTAC.
--- NOTE | 2016-09-11 16:43 | NUR ---
SIGNIFICANT EVENT: PATIENT CONTINUES TO OPEN EYES PART WAY TO PAIN ONLY. PUPILS NON-REACTIVE. PATIENT DOES NOT FOLLOW ANY COMMANDS. WITHDRAWS TO PAIN IN BILAT LOWER EXTREMITIES, DECORTICATE POSTURING IN BILAT UPPER EXTREMITIES. ICP VENTRIC INTACT, NO DRAINAGE AROUND SITE. VENTRIC OPEN AT ALL TIMES, TOTAL OF 123 ML CSF DRAINED. PATIENT HAS BEEN IN SINUS TACHYCARDIA, HR 110S-130S. PULSES PALPABLE THROUGHOUT. SOME EDEMA PRESENT. BP STABLE, SBP 110-140S, MAP>65. CALCULATED CPP >65. AFEBRILE. PATIENT CONTINUES ON THE VENT, CPAP MODE 40% FIO2, TV 400S, PEEP 5 PSV 10. ETCO2 25-32. SATS MID TO UPPER 90S. SPONT/INDUCED LLOYD GAG PRESENT. BOWEL SOUNDS PRESENT, NO BM TODAY. PEG TUBE INTACT, NO COMPLICATIONS. OSMOLITE INFUSING AT 45ML/HR, MAX RESIDUAL OF 160. SALINE FLUSHED 150 ML Q 6 HOURS. GAUTHIER INTACT, ADEQUATE URINE OUTPUT. ACCU CHECKS EVERY 6 HOURS. NO NEW SKIN ISSUES NOTED. REPOSITIONED EVERY [address] KLEIN TALKED TO FAMILY TODAY REGARDING NEXT STEP, POSSIBLE MBA INTERN SHUNT SOON, FAMILY STATED THEY ARE WAITING TO HEAR FROM DR. LEWIS. FOLLOW : CONTINUE TO MONITOR
--- NOTE | 2016-09-11 17:17 | NUR ---
D: HEAD BLEED I: VENT, DUONEB R: PT REMAINED ON 40% FIO2 T/O DAY, BS I.E. WHEEZES T/O, SXNED OUT SCANT TO SMALL THICK CREAMY SECRETIONS, PT HAS BEEN IN CPAP 07/19 SINCE 11:10 & TOLERATING WELL, NO OTHER SIGNIFICANT CHANGES T/O DAY P: CONT.8
--- NOTE | 2016-09-12 02:43 | NUR ---
Pt in CPAP mode, CPAP 5/PS 10, 40% Fio2 to start shift, tolerated well. Changed back to A/C mode for NOC. Pt has strong spont coughs t/o night, sxn small white/clear thin. Lung sounds ex wheezes, occ insp wheeze and slightly coarse, clears with sxn. Will continue with CPAP trials in AM.
--- NOTE | 2016-09-12 04:41 | NUR ---
Significant Event: 121 ML RUST COLORED CSF FROM VENTRIC. OPEN AT ALL TIMES. ICP 0-6. VSS. A/C OVERNIGHT. CPAP THIS AM. LUNG SOUNDS WHEEZES/SLIGHLTY COARSE. HYPOACTIVE BOWEL SOUNDS. RESIDUAL MAX OF 120, DOWN TO 45ML AT 0300. NO BM OVERNIGHT. ADEQAUTE UOP, 520ML OUT. BATH COMPLETE. OBASI SPOKE WITH FAMILY ABOUT POSSIBILITY FOR DIRECTOR INSURANCE SHUNT, FAMILY WOULD LIKE TIME TO DECIDE. Follow up: CONTINUE TO MONITOR.
--- NOTE | 2016-09-12 16:24 | NUR ---
Significant Event: Patient remains trached on ventilator going between cpap/AC mode. NO sedation. Does not open eyes to pain/stimulation.Brings BUE to center of chest with painful nailbed stimuli. Withdraws in BLE to painful nailbed stimuli. ICP -3-3. CPP 61-88. Raised ventriculostomy to [id number] above auditory canal. SR-ST HR 103-133. SBP 90-140. Max temp 99.7, fan on. Hypoactive bowel sounds but more active on last assessement. No bm this shift. Max residual 55.Fentanyl 25mcg given for increase HR,RR and stacking breaths.Accuchecks q6h treated x1 with one more to assess this shift.Osmolite 1.5 continues via PEG tube. Follow up:OR is planned to placeVP shunt tomorrow. NPO after midnoc. FAmily has not signed consents- talking to see if want to continue to the shunt.
--- NOTE | 2016-09-13 03:54 | NUR ---
No changes to vent settings t/o shift, continued on 30% Fio2 in A/C mode. Lung sounds occ insp wheeze, mostly clear/diminished. Sxn scant-small clear/white with strong cough from Pt. Will continue to monitor
--- NOTE | 2016-09-13 04:45 | NUR ---
Significant Event: PT MINIMALLY RESPONSIVE. DOES NOT FOLLOW COMMANDS, OCCASIONALLY HAS TINY AMOUNTS OF SPONTANEOUS MOVEMENT OF HEAD, OCCASIONALLY SPONTANEOUSLY OPENS EYES WHEN COUGHING. PUPILS REMAIN 4/F. DECORTICATE POSTURING IN BUE, WITHDRAWS IN BLE. SR-ST ON MONITOR, RATES HIGH 90S-LOW 140S. TMAX 101.1, APAP GIVEN X1 DOSE WITH POSITIVE EFFECT. HR BACK TO 90S-110S AFTER METOPROLOL, NORVASC, AND APAP GIVEN. BP WNL. WHEEZES HEARD THROUGHOUT. CONTINUES IN A/C MODE, 30% FIO2. OVERBREATHES WITH RATES 20S-30S. NPO SINCE MIDNIGHT. NO BM THIS SHIFT. APPROPRIATE UOP. Follow up: CONTINUE, TALK WITH FAMILY TO DETERMINE NEW COURSE OF TREATMENT. VERONIKA ZHENG RN
[2016-09-13 04:59] LABS: ALBUMIN 2.2 gm/dL (3.5-5.0); ALK PHOS 347 IU/L (33-138); ALT 62 IU/L (12-78); ANION GAP 11.9 (10.0-19.0); AST 37 IU/L (10-40); BLOOD UREA NITROGEN 31 mg/dL (6-24); CALCIUM 8.9 mg/dL (8.5-10.5); CHLORIDE 103 mMol/L (96-110); CO2 28 mMol/L (22-32); ESTIMATED GFR (MDRD EQUATION) > 60; POTASSIUM 3.9 mMol/L (3.7-5.1); SODIUM 139 mMol/L (135-145); TOTAL BILIRUBIN 0.4 mg/dL (0.0-1.5)
[2016-09-13 05:05] LABS: BASOPHIL # 0.1 K/uL (0.0-0.2); BASOPHIL % 0.6 %; EOSINOPHIL # 0.5 K/uL (0.0-0.5); EOSINOPHIL % 5.2 %; HEMOGLOBIN 9.5 g/dL (11.0-16.0); IMMATURE GRANULOCYTE # 0.1 K/uL (0.0-0.3); IMMATURE GRANULOCYTE % 0.5 %; LYMPHOCYTE # 1.1 K/uL (0.8-4.0); LYMPHOCYTE % 11.1 %; MCH 31.3 pg (27.0-34.0); MCHC 32.8 gm/dL (32.0-36.5); MCV 95.4 fl (83.0-98.0); MONOCYTE % 10.3 %; MPV 8.5 fl (9.4-12.4); NEUTROPHIL # (ANC) 7.3 K/uL (1.4-9.0); NEUTROPHIL % 72.3 %; NRBC % 0 /100WBC (0-0.00); PLATELET COUNT 555 K/uL (150-450); RBC 3.04 M/uL (3.50-5.50); RDW-CV 13.1 % (11.9-14.6); WBC 10.1 K/uL (4.0-11.0)
[2016-09-13 05:12] LABS: INR - (THERAPEUTIC) 0.96 (0.92-1.07); PROTIME 10.1 SECONDS (9.8-11.4); PTT 33 SECONDS (25-32)
--- NOTE | 2016-09-13 14:12 | NUR ---
1030 Talked with Marlene who tells me that family is still talking and debating on if they want to proceed with the CHERRY DIPPER shunt placement or going comfort cares with Facundo. Asked that she keep me updated so I could help with discharge plans. She states that she will do this. 1140 Yana from [facility] called me to let me know that she would be out tomorrow and would be willing to talk with family if they were around. I updated her to the above. She tells me that before she goes to talk with family, she will check in with me first and see if there was any futher updates from today on if they were doing the shunt placement or going comfort cares with Facundo. Told her that this was fine. CM to continue to follow and assist.
--- NOTE | 2016-09-13 14:57 | NUR ---
Significant event: Patient remains intubated, but not sedated. Decorticate posturing in BUE and withdrawal in BLE in response to painful stimuli. Pupils 4 and fixed. Right eye does open occassionally spontaneously or in response to stimuli. Sinus tachycardia with rates in 100s-110s. Max temperature of 99.6. SBP 140s-100s. ICP/ventric remains open. Inspiratory wheeze throughout. No BM. DVTs found in right arm, Dr. Redmond notified. IRRIGATION EQUIPMENT INSTALLER shut placement cancelled. Family met with Dr. Redmond and Palliative to disscuss plan of care. Follow up: Family meeting with Dr. Chen scheduled for later this evening (09/13) to further discuss plan of care.
--- NOTE | 2016-09-13 17:01 | NUR ---
Significant Event: TOOK OVER PT CARES AT 1345. NO CHANGES NOTED FROM PREVIOUS ASSESSMENTS/CHARTING. FAMILY MEETING IS PLANNED ABOUT 1730 PER 'S REQUEST. FAMILY AND DUANE (PALLIATIVE CARE NURSE) ARE ALL AWARE. Follow up: PLAN OF CARE, AFTER TALKS WITH FAMILY TONIGHT.
--- NOTE | 2016-09-14 04:25 | NUR ---
Significant Event: Patient has minimal response to stimuli, patient family does not like a lot of painful stimuli. Patient occasionally opens R) eye slightly. Bites down during oral cares. Patient has spontaneous cough. Pupils are 4mm and fixed. Withdraws to BLE, docorticate to KYLE. ST with HRs 110s-130s. Max temp 99.9. Lung sounds are course and wheezy, but clear with suction. Continues in A/C mode at night, overbreathes set rate. Peg tube clamped until nutrition reassessed in morning, no BM. Han intact with marginal UOP. Withdrawal vs PREMIUM REPRESENTATIVE shunt was discussed with family today. Caps and tubing changed. Patient bathed. Follow up:
--- NOTE | 2016-09-14 05:48 | NUR ---
No changes made this shift. Suctioned scant-small amounts of thick luis-cream colored secretions from trach this shift. Has spontaneous cough and when stimulated RR low 30s. Continue per plan of care.
--- NOTE | 2016-09-14 10:43 | NUR ---
A - NUTRITION F/U. VENT PER TRACH. NO CHANGE IN NEURO STATUS. NO NEW LABS. CBW: 121# IS DOWN 5# FROM ADMIT. OSMOLITE 1.5 AT 45 ML/HR RESUMED THIS AM. NS RUNNING AT 10 ML/HR. PT WILL NOT HAVE ELEVATOR ERECTOR HELPER SHUNT PLACED, FAMILY POSSIBLY LEANING TOWARD W/ DRAWL. EST NEEDS: [id number] KCALS, 69-85 GM PROTEIN, 1 ML/KCAL FLUIDS. D - AT RISK W/ INABILITY TO SWALLOW R/T TRACH AND NEURO STATUS AEB PEG TUBE FEEDINGS. I - GOAL: CONT TO MEET NEEDS VIA EN. M/E - 1) GIVEN FULL CARES CONT, REC INCREASING TF TO 50 ML/HR = 1800 KCALS, 75 GM PROTEIN, 914 ML FREE H20 AND INCREASE NS TO 40 ML/HR. RECS DISCUSSED W/ NURSING, PALLIATIVE AND WRITTEN IN CHART. F/U IN 3-5 DAYS.
--- NOTE | 2016-09-14 12:29 | NUR ---
7345 Update from RN for the day that family had not come to a decision on if they were going to proceed with getting Facundo the PROTOTYPE MACHINE OPERATOR Shunt or not or if they were going to go the Comfort Care route. I let RN know if she saw family up later today to please call me so I could come up and talk with them. Per update from [facility], they had a meeting with family and last night to discuss options, but no concrete decision was made at that time. Marlene says that there is a son coming in this weekend and after he comes, she thinks that they will decide to withdrawl cares and just do comfort cares, but she is not for sure at this point. I let her know to keep me updated as she knew more. I also ran into Yana from [facility], updated her to the above. She states that she will touch base with me on Sunday and see if family has come to a decision at that point. I phoned over to [facility], talked with Brigida, inquired if family was to go forward with the comfort cares and he was to last for an extended period of time, if they would be willing to look at him for a skilled end of life (Medicare) stay or not. Brigida tells me that they would be willing to look at his case and make that determination once referral was faxed to them. If they were able to do a skilled end of life stay (Medicare) then she said they might also be able to do a Hospice stay if it was needed. Let her know that either one of these options might work, but I would call her early next week to see what family had decided over the weekend and then go from there. Brigida was in agreement with this plan. CM to continue to follow and assist.
--- NOTE | 2016-09-14 17:11 | NUR ---
Significant Event: Patient withdraws in bilateral lower extremities, extends in bilateral upper extremities. Pupils are 4 and fixed. ICP/Ventric in place. Ventric is open at all times, except to get hourly ICP reading and to drain ventric. SBP have been one teens-160's, MAP's have been 70's-low 100's. CPP 70's-low 100's. HR have been one teens-140's. Vent is in AC rate of 16, TV 400, PEEP of 5, FiO2 of 30%. RR have been 20's-low 30's. Lung sounds are coarse with inspiratory and expiratory wheeze. Family decided to go comfort cares today, but to leave patient on Vent until Sunday when a son would be here. Follow up:
--- NOTE | 2016-09-14 17:30 | NUR ---
D: HEAD BLEED I: VENT, DUONEB R: PT REMAINED ON 30% FIO2 T/O DAY, BS I.E. WHEEZES TO EXP WHEEZES T/O, SXNED OUT SCANT TO SMALL THICK CREAMY SECRETIONS, PT WAS IN CPAP/PS FROM 13:04-14:53, PLACED BACK INTO AC DO TO LOW VT'S & HIGHER RR'S P: CONT.8
--- NOTE | 2016-09-15 04:20 | NUR ---
Significant event: pt on comfort cares. Plan to stay on comfort cares until 09/17/16 when son of patient arrives. 355ml urine output. 84ml ventric output. No pain medication given during shift. Patient rested comfortably. Overbreathes vent. Family at bedside until 2100. Follow up:
--- NOTE | 2016-09-15 04:32 | NUR ---
No changes made to vent settings this shift. FiO2 currently at 30% for O2 sats of 92-95%. ETCO2 was 27-37 throughout the shift. Breathsounds slightly coarse at times and also inspiratory and expiratory wheezes throughout bilaterally. Suctioning scant to small amounts of thick creamy secretions. Patient was placed on comfort care measures this shift. Plan is to keep on the ventilator until Sunday when son gets to the hospital. Will continue to monitor patient.
--- NOTE | 2016-09-15 17:03 | NUR ---
SIGNIFICANT EVENT: PATIENT UNRESPONSIVE, NO CHANGED IN NEURO ASSESSMENT SINCE SHIFT CHANGE. DOPES NOT OPEN EYES TO VOICE, SPONT, OR TO PAIN. PUPILS EQUAL, NON REACTIVE. DOES NOT NOD TO QUESTIONS. DOES NOT FOLLOW ANY COMMANDS. WITHDRAWS TO PAIN IN BILAT LOWER EXTREMITIES. DECORTICATE POSTURING IN BILAT UPPER EXTREMITIES. ICP/VENTRIC INTACT, NO DRAINAGE AROUND SITE. ICP 2-9. VENTRIC OPEN AT ALL TIMES. 10-20ML BLOOD TINGED CSF DRAINED EVERY HOUR. PATIENT HAS BEEN SINUS TACHY, PULSES PALPABLE THROUGHOUT. BP STABLE, SBP 110-150S, MAP>65. EDEMA PRESENT. PATIENT CONTINUES TO REQUIRE VENT SUPPORT, A/C MODE RR 20S-30S, TV 400, PEEP 5, 30% FIO2. OVERBREATHS VENT SEETINGS SATS LOWER TO MID 90S. ETCO2 MID TO HIGH 20S. TRACH CARES COMPLETED. BOWEL SOUNDS PRESENT, LIQUID OUTPUT. GAUTHIER INTACT, ADEQUATE URINE OUTPUT. NO NEW SKIN ISSUES NOTED. BATH COMPLETED. REPOSITIONED EVERY 2 HOURS. MARTII TO ICU, FAMILY REFUSED INTERPERTER. R) PICC, SALINE LOCKED. FAMIL PLANS TO GO COMFORT CARES ON Sunday, DR BRITO NOTIFIED, DUANE ZAVALETA NOTIFIED. FOLLOW UP: CONT.
--- NOTE | 2016-09-16 04:18 | NUR ---
SIGNIFICANT EVENT: PT CONTINUES COMFORT CARES. MORPHINE GIVEN X2 AND ATIVAN X1 FOR COMFORT. DISCUSSED PLANS FOR EXTUBATION AT 0100 GÓMEZ WITH FAMILY. FOLLOW UP:
--- NOTE | 2016-09-16 17:03 | NUR ---
Significant Event: Patient remains on ventilator. Trach intact. Plan is to extubate at 0100 on 09/17/16. Family requests our pastoral care to be present. Plan is to page Adam with pastoral care 30minutes prior to planned vent discontinuation. ICP/Ventric discontinued at 1310, jamila with 4X4 guaze, tegaderm intact. HR as high as 150-160 while pulling ICP/Ventric. [id number] Morphine IV prn x2. PRN ativan x1. HR currently 130's, patient appears comfortable at this time, no s/s of pain. Max temp 101.5, gave PRN tylenolx2, last temp 98.7. Han and flexiseal intact. Follow up:On comfort cares, remove ventilator at 0100 09/17/16
--- NOTE | 2016-09-17 03:49 | NUR ---
Significant Event: Comfort cares. Taken off vent and switched to 21% Fi02 trach mask humidified air at 0100. Transferred to room 3200 at 0330. Gave report to Lakesha CARMICHAEL. Family at bedside. Follow up: Continue
--- NOTE | 2016-09-17 03:55 | NUR ---
Significant Event: PT TRANSFER FROM ICU AT 0330. COMFORT CARES. ADMIT TO [facility] ON 08/24 WITH INTRAVENTRICULAR BLEED. TRACH WITH HUMIDIFIED AIR, PEG TUBE, FLEXISEAL, GAUTHIER. IN CONTACT ISOLATION- [facility] PRECAUTIONS. PICC TO JOVANA. PT UNRESPONSIVE AT THIS TIME. VITALS ON ARRIVAL TO UNIT: 89%, 145HR, 134/78, 100.2 AXILLARY, 32RR. FAMILY HAS CHOSEN [facility] FOR HOME. MULTIPLE FAMILY MEMBERS AT BEDSIDE, SOME OF THEM SPEAK HUNGARIAN. Follow up: COMFORT CARES
--- NOTE | 2016-09-17 17:52 | NUR ---
Significant event: Patient noted at 173 by Annalise Denise, RN and Daniel Meehan RN. Family present at bedside. Father was present.Dr Fabian was notified at 174. Gale was notified also. Palliative nurse was notified. Family stated they notified the mortuary, but they are not on their way yet. More family is on the way so will give them time. They will let staff know when they are ready to release the body.
== END 2016-09-17 17:35 | disposition expired | DRG 3 ==
LOC: GACC 15:00 → GICU 16:36 → GNTU 16:36 → GMSU 09-17 03:34
PROVIDERS: Anesthesiology; Emergency Medicine; Internal Medicine; Neurological Surgery; Physical Medicine & Rehabilitation; ADMIT Internal Medicine
DX: I61.9 Nontraumatic intracerebral hemorrhage, unspecified (principal); J69.0 Pneumonitis due to inhalation of food and vomit; J15.0 Pneumonia due to Klebsiella pneumoniae; G93.40 Encephalopathy, unspecified; E87.0 Hyperosmolality and hypernatremia; N17.9 Acute kidney failure, unspecified; J96.01 Acute respiratory failure with hypoxia; D64.9 Anemia, unspecified; E11.9 Type 2 diabetes mellitus without complications; I16.1 Hypertensive emergency; G91.9 Hydrocephalus, unspecified; I47.1 Supraventricular tachycardia; I61.5 Nontraumatic intracerebral hemorrhage, intraventricular; M47.814 Spondylosis without myelopathy or radiculopathy, thoracic region; E78.5 Hyperlipidemia, unspecified; J44.9 Chronic obstructive pulmonary disease, unspecified; Z51.5 Encounter for palliative care; W19.XXXA Unspecified fall, initial encounter; Y93.E1 Activity, personal bathing and showering; Y92.002 Bathroom of unspecified non-institutional (private) residence as the place of occurrence of the external cause; Z87.891 Personal history of nicotine dependence
CPT/HCPCS: A9270; C1751; C9113; J0360; J0690; J1160; J1940; J2060; J2250; J2270; J2370; J2543; J2704; J3010; J3480; J7030; J7040; J7050; P9016

== ENCOUNTER → 2016-08-24 | Outpatient (CLI) | payer MEDICARE | END | disposition disaster alternative care site (69) | LOC: GAMB 14:21 | DX: R40.20 Unspecified coma (principal); R11.10 Vomiting, unspecified; R06.83 Snoring | CPT/HCPCS: A0422; A0425; A0433; J2405; J7030 ==